=== PATIENT | male | born 1960 | race Caucasian/White ===

== ENCOUNTER 2020-07-24 10:38 | Emergency (ER) | payer MEDICAID, SELFPAY ==
[2020-07-24 10:46] VITALS: BP 138/84; PULSE 70; RESP 16; TEMP 36.7; O2SAT 98
--- NOTE | 2020-07-24 11:15 | DI.US_ITS ---
Exam(s) US LOWER EXTREMITY VENOUS RT EXAM: US LOWER EXTREMITY VENOUS RT CLINICAL HISTORY: pain. TECHNIQUE: Ultrasound performed using standard protocol. COMPARISON: No exams were available for comparison FINDINGS: Duplex venous ultrasound was performed according to the usual protocol. The deep veins are freely com pressible throughout and there is normal flow augmentation with manual calf compression. 2D and Doppl er evaluation are unremarkable. IMPRESSION: No evidence of deep venous thrombosis of the right lower extremity. DATA REPOSITORY:
--- NOTE | 2020-07-24 11:15 | DI.RAD_ITS ---
Exam(s) XR TIB/FIB RT EXAM: XR TIB/FIB RT CLINICAL HISTORY: pain proximal tib, chronic ulcers TECHNIQUE: COMPARISON: No exams were available for comparison FINDINGS: Three views were obtained. There are mild degenerative changes of the joints of the knee and ankle. No other significant bony abnormality seen. IMPRESSION: RADIATION DOSE DELIVERED: Total DLP
[2020-07-24 11:29] VITALS: RESP 16
--- NOTE | 2020-07-24 11:32 | W.ED.GENAD ---
Discharge Plan Disposition Patient Disposition: HOME Condition: Stable Discharge Details Clinical Impression: Pain in right lower leg, Chronic skin ulcer Primary Care Provider: Lisa,Local ED Provider: Jerry Del Rosario Home Meds and New Rx's Prescriptions: Continued metformin 500 mg Tablet 500 mg PO BID RF: 0 sulfamethoxazole-trimethoprim [Bactrim DS] 800-160 mg Tablet 1 tab PO BID RF: 0 aspirin 81 mg Tablet,Delayed Release (Dr/Ec) 81 mg PO DAILY RF: 0 amlodipine 10 mg Tablet 10 mg PO DAILY RF: 0 finasteride 5 mg Tablet 5 mg PO DAILY RF: 0 No Action azithromycin 250 mg Tablet 250 mg PO DAILY RF: 0 atovaquone-proguanil 250-100 mg Tablet 1 tab PO BID RF: 0 Discharge Instructions Instructions: Leg Pain (ED) Additional Instructions: Ultrasound and x-rays today were unremarkable. A blood test is pending at time of discharge. Sure to follow-up with your doctor regarding this test result which should be available within a few days. Please stay off your leg and keep it elevated for the next couple days. Please take Bactrim as prescribed. Discuss your other antibiotics with treating provider and primary care physician. Please contact your primary care physician to arrange follow-up. I have asked care management to assist in arranging a new primary care physician in the area. Please follow-up with your agricultural engineering technicians regarding skin lesions. Return to the ER immediately for any worsening or new concerning symptoms. Stand Alone Forms: Work Release Medical Decision Making 1145??60-year-old male with history of chronic skin ulcers, here with pain over the past 5 days right lower leg. Patient has some mild swelling and tenderness proximal anterior lower leg near area of shallow skin ulcer. There is no warmth, induration, erythema or drainage. Patient was recently started on Bactrim by agricultural engineering technicians yesterday as treatment for ulcerative condition. Screen for underlying bony change. Patient also some pain posterior distal right lower extremity. Consider DVT. Will obtain ultrasound. We will send RPR for chronic rash. --Ultrasound of the right lower extremity interpreted by radiology: Negative. X-ray of the tib-fib interpreted by radiology: Negative. Patient was encouraged to follow-up with his agricultural engineering technicians as well as primary care physician. He will need help establishing a new PCP in the area. I will ask care management to assist. I discussed the limitations of diagnostic work-up with the patient today. He understands that if pain were to persist despite antibiotic treatment over the next few days, he may need additional diagnostic testing and should discuss this with his doctor or return to the emergency department. Usual and customary discharge instructions were reviewed with the patient. HPI General Mode of arrival: ambulatory. Date/Time Provider Initiated Documentation: 07/24/20 10:39. Limitations to Documentation: no limitations. Information obtained by: patient. 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 Pain is been persistent for the past 5 days. Pain is localized to right lower leg worse anteriorly over proximal tibia and also posterior distally. He notes mild associated swelling. No new rash. Patient notes chronic skin ulcers more recently involving his right leg. He was seen by dermatology for these lesions yesterday and started on Bactrim. He is taken 2 doses of Bactrim. Related Data Home Medications Medication Instructions Recorded Confirmed amlodipine 10 mg PO DAILY 07/24/20 07/24/20 aspirin 81 mg PO DAILY 07/24/20 07/24/20 atovaquone-proguanil 1 tab PO BID 07/24/20 07/24/20 azithromycin 250 mg PO DAILY 07/24/20 07/24/20 finasteride 5 mg PO DAILY 07/24/20 07/24/20 metformin 500 mg PO BID 07/24/20 07/24/20 sulfamethoxazole-trimethoprim 1 tab PO BID 07/24/20 07/24/20 [Bactrim DS] Allergies Allergy/AdvReac Type Severity Reaction Status Date / Time thiopental [From Pentothal] Allergy Severe Paralysis Unverified 07/24/20 10:59 Penicillins Allergy Intermediate Skin Rash Unverified 07/24/20 10:59 General Stated Complaint: Orthopedic PAVAN: 3 Review of Systems Constitutional Constitutional: Denies fever(s) Musculoskeletal Musculoskeletal: Denies myalgias Integumentary/Breasts Skin/Breast: Reports acne Neurologic Comments: Intermittent tingling sensation bilateral soles of feet worsening PFSH Social History Smoking/Tobacco Use Status: Never Smoking risk assessment performed?: Yes Alcohol Intake: current Alcohol Intake frequency: holidays/special occasions only Alcohol type: beer Drug use: Occasionally Substance use type: marijuana Details: edibles Do you feel safe at home: Yes Do you feel safe in your relationship?: Yes Exam Const General: cooperative and no acute distress HENMT Mouth: moist mucous membranes Eyes Conjunctivae: normal conjunctivae Sclera: normal sclerae Neck Neck: trachea midline and supple Resp Auscultation: clear to auscultation bilaterally, no rales, no rhonchi and no wheezes Cardio Rate: regular rate and not tachycardic Rhythm: regular rhythm Heart Sounds: no murmurs GI Palpation: soft, not firm, no guarding, no masses, not rigid and nontender Skin Rashes: rashes noted (1-2 cm ulcers in various stages of healing RLE) Neuro General: patient alert, patient awake, patient oriented x3 and tone normal Extrem Other: Right lower extremity: Tender palpation proximal anterior tibia and posterior distal lower leg, mild swelling localized to the anterior lower leg over the tibia with no erythema or warmth, there are 1 to 2 cm o ulcers in various stages of healing on lower leg without erythema or induration. Psych Appearance: grossly normal Mental Status: mental status grossly normal Course Vital Signs Vital signs: Vital Signs Temperature 36.7 C 07/24/20 10:46 Pulse 70 07/24/20 10:46 Respiratory Rate 16 07/24/20 10:46 Blood Pressure 138/84 07/24/20 10:46 Pulse Oximetry 98 07/24/20 10:46 Temperature 36.7 C 07/24/20 10:46 Temperature Source Temporal Artery Scan 07/24/20 10:46 Pulse 70 07/24/20 10:46 Respiratory Rate 16 07/24/20 10:46 Respiratory Effort Non-Labored 07/24/20 10:54 Blood Pressure 138/84 07/24/20 10:46 Blood Pressure Position Supine 07/24/20 10:46 Pulse Oximetry 98 07/24/20 10:46 Oxygen Delivery Method Room Air 07/24/20 10:46 Oxygen Flow Rate 0 07/24/20 10:46 Pain Level 5 07/24/20 11:05
--- NOTE | 2020-07-24 12:31 | NUR.NOTE ---
Nursing Note: report from april neri.
--- NOTE | 2020-07-24 12:39 | NUR.NOTE ---
Nursing Note:lab at bedside. pt denies any needs at this time.
--- NOTE | 2020-07-24 12:44 | NUR.NOTE ---
Nursing Note: Referral given to Care Management to establish care with a PCP with routine follow up. Patricia Callaway
[2020-07-24 12:55] VITALS: BP 123/82; PULSE 66; RESP 16; TEMP 36.7; O2SAT 98
--- NOTE | 2020-07-25 10:33 | PDOC.ERCMPRO ---
- If Service Date Differs Date of service: 07/25/20 Time of Service: 10:33 Care Management Progress Note Terry is seen in the ED for pain in right lower leg and chronic skin ulcer. At the request of ED provider, ROCCO coordinates a referral to Donald Mcclure of [facility], on-call provider, to assist Terry in obtaining a follow up appointment and in establishing care with a local PCP.
[2020-07-25 11:48] LABS: Syphilis Serology (RPR) Negative (Negative)
== END 2020-07-24 13:05 | disposition home or self-care (01) ==
PROVIDERS: Emergency Provider Student in an Organized Health Care Education/Training Program
DX: M79.661 Pain in right lower leg (principal); L97.918 Non-pressure chronic ulcer of unspecified part of right lower leg with other specified severity
CPT/HCPCS: 36415; 99284; 73590; 86592; 93971

== ENCOUNTER 2021-03-19 01:14 | Outpatient (CLI) | payer MEDICAID, SELFPAY ==
--- NOTE | 2021-03-19 | DI.RAD_ITS ---
Exam(s) XR EYE FOREIGN BODY EXAM: XR EYE FOREIGN BODY CLINICAL HISTORY: H/O METAL IN EYES. History metallic foreign body exposure. TECHNIQUE: 2D digital imaging was performed. Two views were obtained. COMPARISON: No exams were available for comparison FINDINGS: No metallic foreign element seen projecting over orbits. IMPRESSION: Unremarkable radiographs of the orbits. DATA REPOSITORY: RADIATION DOSE DELIVERED:
--- NOTE | 2021-03-19 | DI.MRI_ITS ---
Exam(s) MR UPPER JOINT LT WO EXAM: MR UPPER JOINT LT WO CLINICAL HISTORY: PAIN LT SHOULDER M25.512, CONCERN FOR ROTATOR CUFF TEAR. TECHNIQUE: Multiplanar multisequence MRI was performed. COMPARISON: CR XR SHOULDER LT COMPLETE 2+V from 03/19/2021 CR XR SHOULDER LT COMPLETE 2+V from 03/19/2021 FINDINGS: BONES: There is no fracture or contusion pattern. JOINTS: Moderate degenerative changes are seen at the acromioclavicular joint. There is superior sub luxation of the humeral head consistent with the rotator cuff tear. TENDONS: Supraspinatus: Complete tear of the supraspinatus tendon with retraction to the level of the glenohum eral joint. Infraspinatus: There is a complete tear of the infraspinatus tendon with retraction almost to the lev el of the glenohumeral joint. Subscapularis: Unremarkable. Teres Minor: Unremarkable. Biceps and Otis: Unremarkable. MUSCLES: Mild atrophy of the supraspinatus muscle. The rotator cuff muscles are otherwise unremarkab le. GLENOID LABRUM: Unremarkable on this noncontrast examination. SOFT TISSUES: There is mild edema in the soft tissues around the shoulder. LIGAMENTS: Unremarkable. OTHER: There is fluid seen in the subacromial subdeltoid bursa secondary to the rotator cuff tear. IMPRESSION: 1. Complete tears of the supraspinatus and infraspinatus tendons with retraction to the level of the glenohumeral joints. 2. Degenerative changes seen at the acromioclavicular joint. Superior subluxation of the humeral hea d consistent with a large rotator cuff tear. 3. Mild atrophy of the supraspinatus muscle. DATA REPOSITORY:
--- NOTE | 2021-03-19 | DI.RAD_ITS ---
Exam(s) XR SHOULDER LT COMPLETE 2+V EXAM: XR SHOULDER LT COMPLETE 2+V CLINICAL HISTORY: PAIN LT SHOULDER M25.512, PAIN FALL ONTO SHOULDER. TECHNIQUE: 2D digital imaging was performed of the left shoulder. Five images were obtained. AP, G rashey, Y-view and axillary views were obtained. COMPARISON: No exams were available for comparison FINDINGS: BONES: No acute fracture is present. No bony destructive lesion is seen. Note is made of an os acromi janessa. JOINTS: No dislocation present. Mild degenerative changes are seen at the acromioclavicular joint and adjacent to the greater tuberosity. SOFT TISSUE: Normal. IMPRESSION: Degenerative changes of the left AC joint. DATA REPOSITORY: RADIATION DOSE DELIVERED:
== END 2021-03-19 01:34 ==
PROVIDERS: PCP Physician Assistant; Visit Provider Physician Assistant
DX: M25.512 Pain in left shoulder (principal); M19.012 Primary osteoarthritis, left shoulder; M75.121 Complete rotator cuff tear or rupture of right shoulder, not specified as traumatic; M62.512 Muscle wasting and atrophy, not elsewhere classified, left shoulder
CPT/HCPCS: 70030; 73030; 73221

== ENCOUNTER 2021-05-29 02:23 | Outpatient (CLI) | payer MEDICAID, SELFPAY ==
[2021-05-29 11:31] LABS: Source Nasal/Nares
[2021-05-29 14:04] LABS: COVID-19 PCR Negative (Negative)
== END 2021-05-29 02:24 | disposition home or self-care (01) ==
PROVIDERS: PCP Physician Assistant; Visit Provider Student in an Organized Health Care Education/Training Program
DX: Z20.822 Contact with and (suspected) exposure to COVID-19 (principal)
CPT/HCPCS: 87635

== ENCOUNTER 2021-05-31 06:01 | Day surgery (SDC) | payer MEDICAID, SELFPAY ==
--- NOTE | 2021-04-25 08:59 | ANES.CON_ITS ---
General Date of Service Date of Service: 04/23/21 Reason for Consult Requesting Provider: Hansel Woodson How Consult Conducted:: Chart Review Reason for Consult:: PMHx significant for DM last A1C 7.3 04/09/2021, CKD Stage III, SOB, and chest pain with activity that is relieved with rest - negative stress test in 2019? Consult Recommendation after Review:: After review of the patient's records, both at [facility] and [facility], I feel it is appropriate to proceed with the planned procedure at [facility]. Follow-up with his PCP prior to surgery re: HgA1C is also great, thanks! Meds Allergies and Home Medications Allergies Allergy/AdvReac Type Severity Reaction Status Date / Time thiopental [From Pentothal] Allergy Severe Paralysis Unverified 04/23/21 08:29 Penicillins Allergy Intermediate Skin Rash Unverified 04/23/21 08:29 Home Medication Medication Instructions Recorded amlodipine 10 mg tablet 10 mg PO DAILY 07/24/20 finasteride 5 mg tablet 5 mg PO DAILY 07/24/20 metformin 500 mg tablet 500 mg PO BID 07/24/20 sulfamethoxazole 800 1 tab PO BID 07/24/20 mg-trimethoprim 160 mg tablet (Bactrim DS) doxycycline hyclate 100 mg capsule 100 mg PO DAILY 04/23/21 hydrochlorothiazide 25 mg tablet 25 mg PO DAILY 04/23/21 [facility] Active Problems Active Problems: Problem Status Onset Code Complete rotator cuff tear M75.120 Pain in right lower leg M79.661 Chronic skin ulcer L98.499 Tobacco Smoking/Tobacco Use Status: Never Alcohol Alcohol Intake: current Alcohol intake frequency: holidays/special occasions only Alcohol type: beer Substance Use Substance use: Occasionally Substance use type: marijuana Details: edibles Vital Signs & Lab Results Point of Care Results Nursing Point of Care Results: No Data to Display Lab Results Blood Type / Crossmatch: No Data to Display Complete Blood Count: No Data to Display Complete Metabolic Panel: No Data to Display Liver Function Panel: No Data to Display Coagulation Panel: No Data to Display Cardiac Panel: No Data to Display Arterial Blood Gas: No Data to Display Venous Blood Gas: No Data to Display Pancreas Panel: No Data to Display Thyroid Panel: No Data to Display Infectious Disease: No Data to Display Blood Cultures: No Data to Display Toxicology Panel: No Data to Display Imaging and Studies Imaging and Studies Stress Test Summary: 04/21/18 Good exercise tolerance and no ST changes. Echocardiogram Summary: 03/29/18 EF 60%, 3-4 mm mobile atheromatous plaque at the sinotubular junction which could be potential source of emboli. No thrombus or clot noted in left atrium or left atrial appendage. No PFO. No significant cardiac valve disease.
[2021-05-31] VITALS (13 sets, daily range): BP systolic 85–137; BP diastolic 55–96; PULSE 59–73; RESP 12–20; TEMP 36.2–37; O2SAT 95–100; BMI 26.2
--- NOTE | 2021-05-31 06:36 | W.ANESPRE ---
General Info Date of Service Date Performed: 05/31/21 Height: 5 ft 7 in Weight: 75.8 kg Body Mass Index (BMI): 26.2 Surgical Procedure: Operation Date: 05/31/21 07:40 Proposed Procedure Side Surgeon p Shoulder Rotator Cuff Arthroscopic w/Extensive Debridement, Biceps Tenodesis, Subacromial Decompression and Allograft Superior Capsular Reconstruction Left Hansel Woodson MD Meds Allergies and Home Medications Allergies Allergy/AdvReac Type Severity Reaction Status Date / Time thiopental [From Pentothal] Allergy Severe Paralysis Unverified 05/31/21 06:19 Penicillins Allergy Intermediate Skin Rash Unverified 05/31/21 06:19 Home Medication Medication Instructions Recorded finasteride 5 mg tablet 5 mg PO DAILY 07/24/20 metformin 500 mg tablet 500 mg PO BID 07/24/20 doxycycline hyclate 100 mg capsule 100 mg PO DAILY 04/23/21 hydrochlorothiazide 25 mg tablet 25 mg PO DAILY 04/23/21 clindamycin phosphate 1 % lotion 1 applic TOPICAL PRN PRN 05/31/21 diphenhydramine 25 2 tab PO PRN PRN 05/31/21 mg-acetaminophen 500 mg tablet (Tylenol PM Extra Strength) losartan 25 mg tablet 25 mg PO DAILY 05/31/21 oxycodone 5 mg tablet 5 - 10 mg PO Q4H PRN #18 tab MDD 05/31/21 30 mg Current Visit Medications: Current Medications Generic Name Dose Route Start Last Admin Trade Name Freq PRN Reason Stop Dose Admin Ringer's Solution 1,000 mls @ 100 mls/hr 05/31/21 06:00 IV 06/13/21 23:59 INFUSION ZONIA Cefazolin Sodium/Dextrose 2 gm in 50 mls @ 100 mls/hr 05/31/21 06:00 Ancef Duplex IVPB 05/31/21 23:59 PREOP ZONIA IV Miscellaneous Supplies 1 each 05/31/21 06:00 Iv Access IV 06/13/21 23:59 DIRECTED ZONIA Sodium Chloride 0 ml 05/31/21 06:00 Normal Saline Flush 10 Ml Syr IV 06/13/21 23:59 PRN PRN Sodium Chloride 0 ml 05/31/21 06:00 Normal Saline 10 Ml Vial IJ 06/13/21 23:59 DIRECTED PRN Sterile Water 0 ml 05/31/21 06:00 Water,Injection,Sterile 10 Ml Vial IJ 06/13/21 23:59 DIRECTED PRN PFSH Active Problems Active Problems: Problem Status Onset Code Pain in right lower leg M79.661 Chronic skin ulcer L98.499 Complete rotator cuff tear M75.120 Medical History Medical History (Updated 05/31/21 @ 07:16 by Hansel Woodson MD) 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 HTN (hypertension) Hx of Lyme disease Stage III chronic kidney disease Type 2 diabetes mellitus Medical History Comments:: 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 Surgical History Surgical History Hx of appendectomy Hx of shoulder surgery Tobacco Smoking/Tobacco Use Status: Never Alcohol Alcohol Intake: current Alcohol intake frequency: a few times a month Alcohol type: beer Substance Use Substance use: Rarely Substance use type: marijuana Details: edibles Vital Signs and Lab Results Vital Signs Most Recent Vital Signs in EMR: Most Recent Vital Signs Temp Pulse Resp BP Pulse Ox 36.3 C L 69 16 132/96 H 100 05/31/21 06:26 05/31/21 06:26 05/31/21 06:26 05/31/21 06:26 05/31/21 06:26 Point of Care Results Point of Care Results: Finger Stick Blood Glucose 148 05/31/21 06:16 Lab Results Blood Type / Crossmatch: No Data to Display Complete Blood Count: No Data to Display Complete Metabolic Panel: No Data to Display Liver Function Panel: No Data to Display Coagulation Panel: No Data to Display Cardiac Panel: No Data to Display Arterial Blood Gas: No Data to Display Venous Blood Gas: No Data to Display Pancreas Panel: No Data to Display Thyroid Panel: No Data to Display Infectious Disease: Coronavirus (COVID-19)(PCR) Negative (Negative) 05/29/21 08:31 05/29/21 Coronavirus 2019 Source Nasal/Nares 05/29/21 08:31 05/29/21 Blood Cultures: No Data to Display Toxicology Panel: No Data to Display Imaging and Studies Imaging and Studies Study information below may be from another EMR and interpreted by another provider. Please see original notes in EMR for more complete details. Stress Test Summary: 04/21/18 Good exercise tolerance and no ST changes. Echocardiogram Summary: 03/29/18 EF 60%, 3-4 mm mobile atheromatous plaque at the sinotubular junction which could be potential source of emboli. No thrombus or clot noted in left atrium or left atrial appendage. No PFO. No significant cardiac valve disease. Anesthesia Assessment and Plan Anesthesia History Personal History: Delayed Emergence and Pseudocholinesterase Deficiency Family History: No Family History of Anesthesia Complications Exercise Tolerance Exercise Tolerance: Metabolic Equivalents>4 Pertinent Negatives Pertinent Negatives: No Symptoms of GERD, No Major Cardiovascular Symptoms or Complaints (None current. 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 Corrected about three years ago. Walks 2 miles a day, does not feel limited. ), No Major Pulmonary Symptoms or Complaints and No History of CVA/TIA (Has a history of TIA noted in [facility] chart. Was determined to be Lymes and not TIAs) Cardiac & Pulmonary Exam Cardiac Exam: Normal S1/S2 Heart Sounds Pulmonary Exam: Clear Bilateral Breath Sounds Implantable Cardiac Device Does patient have a Pacemaker or an ICD?: No Airway Exam Known Difficult Airway: No Mallampati Class: 2 Mouth Opening: Normal (> 3cm) Thyromental Distance: Greater than 3 cm Neck Range of Motion: Full ROM Neck Circumference: Normal Teeth Condition: Generalized Poor Dentition ASA Classification ASA Score: ASA 3 Emergency Case?: No NPO Status NPO Status: NPO Clears >2 hours, Solids >8 hours Anesthesia Plan Resuscitation Status: Full Code Anesthesia Technique: General Anesthesia Airway Planned: Endotracheal Tube Pain Management: Surgeon and patient request nerve block Monitors Used: Standard Monitors Preoperative Comments:: Pseudocholinesterase deficiency, Mild factor VII deficiency. TXA to be given, pharmacy and blood bank notified. Last assessment of factor VII factors was at 40%. UV Heme/Onc not concerned about spontaneous bleeding unless under 19%. Patient reports recent spout of nosebleeds. Feels these are related to wood heat.
[2021-05-31] MEDS: Lactated Ringers 1,000 ML 100 ML IV (06:55)
[2021-05-31] MEDS: ceFAZolin 2 GM/50 ML BAG IVPB (07:50)
[2021-05-31] MEDS: Tranexamic Acid 1,000 MG/10 ML VIAL 1000 MG (08:05)
--- NOTE | 2021-05-31 09:00 | ROE_ITS ---
Date of service: 05/31/21 Time of Service: 07:30 Operative Note Operative Note DATE OF PROCEDURE: 05/31/21 PRE-OP DIAGNOSIS: Left: 1. Rotator cuff tear 2. LHB tendinopathy 3. Bursitis POST-OP DIAGNOSIS: same PROCEDURE: Left: 1. Rotator cuff repair, CPT# 51775. This involved repair of the anterior and posterior rotator cuff through the graft to the greater tuberosity. 2. Arthroscopic superior capsular reconstruction, CPT #33615: This involved dermal allograft reconstruction of deficient superior capsule to maintain glenohumeral stability and prevent superior humeral migration. 3. Arthroscopic biceps tenodesis, CPT# 73548. This involved arthroscopically suturing and reattaching the long head of the biceps tendon to the proximal humerus at the superior margin of the bicipital groove with a screw at the correct tension. 4. Extensive debridement, CPT# 65691. This involved using arthroscopic hand instruments, power instruments, and radiofrequency instruments to release the long head of the biceps tendon and debride areas of labral tearing, synovitis, and chondromalacia about the greater tuberosity within the glenohumeral joint anteriorly, superiorly and posteriorly. 4. Subacromial decompression, CPT# 97190. This involved using arthroscopic power instruments and a radiofrequency wand to complete a bursectomy. The assistant professor of history was medically required in order to help assist in techniques above, which require positioning the arm, holding the arthroscope, and manipulating multiple instruments and sutures at the same time. This cannot be done without the help of an experienced assistant professor of history. SURGEON: Hansel Woodson BUDGET CONTROLLER: Clara Benitez ANESTHESIA TYPE: General LMA/ETT and Primary Nerve Block Refer to Anesthesia Record ESTIMATED BLOOD LOSS: 10 PATHOLOGY: none sent COMPLICATIONS: None Patient was transported to: PACU Patient's condition: stable Implants: Arthrex: 4.75mm SwiveLocks x 5 and 3.9mm knotless Corkscrews x 2 Indications: The patient was diagnosed with the above conditions and appropriately indicated for surgical intervention. Please see complete medical record for details. Findings: Exam under anesthesia: Full range of motion, no instability Glenohumeral joint: Intact subscapularis. Significant anterior superior posterior synovitis. Chronic degenerative bony fibrinous and early osteophyte formation superior humeral head. Obvious full-thickness superior rotator cuff defect. Degenerative type SLAP tear. Significant biceps long head intra- articular segment injection traveling down the groove. Subacromial space: Significant bursitis. Complete deficient superior rotator cuff with posterior intact attachment most posterior rotator cuff. Procedure Description: In the operating room, general anesthesia was induced. Bilateral shoulders were examined. The patient was positioned in the beachchair position. All bony prominences were well-padded. Preoperative antibiotics were administered. The shoulder was prepped and draped in the usual sterile fashion. The correct patient, procedure, and side of the procedure were all verified prior to incision. Starting through the posterior portal a standard complete diagnostic arthroscopy was performed of the glenohumeral joint including inspection of the long head of the biceps, anterior and superior labrum, subscapularis tendon, supraspinatus and infraspinatus tendons, and axillary recess. The glenoid and humeral head cartilage as well as the posterior labrum were inspected from an anterior viewing portal. Significant findings and interventions noted above. A rigid cannula was inserted anteriorly. The superior anterolateral portal was established. An all-arthroscopic suprapectoral biceps tenodesis was performed through an anterior portal using a Loop N Tack method with a SutureTape FiberLink cinched around and through the tendon. The biceps was tenotomized from the labrum and fixated with a suture anchor at the superior margin of the bicipital groove. The arthroscope was redirected to the subacromial space. The usual posterior superior lateral lateral portals were established and additional passport cannulas inserted. Significant debridement was performed of bursitis anterior laterally and posteriorly to expose the chronic significant rotator cuff tear changes. The humeral head was abraded and debrided and smoothed of early marginal osteophyte formation and to promote bone tendon and graft healing. Debridement was carried medially exposing the superior and posterior superior glenoid. There was significant intact interval tissue over the anterosuperior glenoid. Decision was made to proceed with central and posterior anchors on the glenoid and not exposed violate this tissue for a third anchor. Percutaneously Nevasier and posterior portals were used to debride and place 3.9 mm corkscrew anchors on the glenoid. On the humeral side, the undersized punch was used to localize in place medial row SwiveLock anchors. The SCR measuring guide was then used to measure graft dimensions with the arm in neutral mild external rotation and abduction. The graft was cut on the back table to the correct size leaving a 5 mm cuff anteriorly medially posteriorly with 10 mm laterally for tuberosity coverage. The glenoid anchor locations were marked and the medial row anchor sites were prepunched. The FiberTape's were brought out the lateral cannula and shuttled through the graft. Maintain the graft and sutures down the anterior repair suture and shuttle suture was retrieved from the glenoid and then passed with the scorpion through the graft in horizontal mattress fashion before shuttling the repair suture back through the glenoid corkscrew. This was repeated with the posterior glenoid knotless anchor. Slack was taken out of the system. The back grasper used to deliver the graft into the joint through the passport cannula while taking tension out of the glenoid knotless anchor mechanisms. The graft deployed nicely and was provisionally secured to the glenoid. Slack was taken out of the FiberTape's and 1 tape from each pair brought out of the way out the anterior lateral portal. The punch was used to localize placement and secure 1 tape from each medial row anchor to a posterior lateral anchor. The arm then rotated, the remaining tape pairs retrieved, and the punch used to localize placement and secure these remaining tapes to an anterior lateral row anchor. The graft demonstrated excellent fixation across the greater tuberosity. The glenoid anchors were final tightened. There was excellent fit over the large superior defect. Posteriorly, the gap between the rotator cuff and capsular reconstruction was closed using the scorpion passing a FiberWire side to side fashion and tied securely with an [facility] arthroscopic knot. This was repeated at the anterior lateral margin incorporating the kinney interval tissue, actually passing the sutures through the biceps tendon which was tenodesed in this location, and through the anterior lateral margin of the graft and secured with an additional [facility] arthroscopic knot. The graft rotator cuff was well opposed posteriorly. No additional repairs were placed anteriorly and to avoid undue closing and stiffness. The shoulder was copiously irrigated and then drained of arthroscopic fluid. All portal sites were copiously irrigated. These incisions were closed using 3- 0 Monocryl in a buried fashion and then covered with Mastisol, Steri-Strips, Xeroform, dry gauze, and ABDs. The dressings were covered and secured with Medipore tape. The operative extremity was placed into a sling for immobilization. The patient awoke from anesthesia without complication and was transferred to the recovery room in a stable condition.
[2021-05-31] MEDS: EPINEPHrine 30 MG/30 ML VIAL (10:00)
--- NOTE | 2021-05-31 10:27 | PDOC.DSDIS_ITS ---
Discharge Plan Disposition Patient Disposition: HOME Condition: Stable Discharge Details Reason For Visit: Left shoulder surgery Attending Provider: Hansel Woodson Primary Care Provider: Cayden Hopkins Home Meds and New Rx's Prescriptions: New oxycodone 5 mg tablet 5 - 10 mg PO Q4H MDD 30 mg PRN (Reason: moderate to severe pain) Qty: 18 0RF Continued hydrochlorothiazide 25 mg tablet 25 mg PO DAILY 0RF doxycycline hyclate 100 mg capsule 100 mg PO DAILY 0RF losartan 25 mg Tablet 25 mg PO DAILY 0RF clindamycin phosphate 1 % lotion 1 applic topical PRN PRN0RF diphenhydramine-acetaminophen [Tylenol PM Extra Strength] 25-500 mg Tablet 2 tab PO PRN PRN0RF metformin 500 mg Tablet 500 mg PO BID 0RF finasteride 5 mg Tablet 5 mg PO DAILY 0RF Discharge Instructions Additional Instructions: Surgery: Left shoulder arthroscopy with allograft superior capsular reconstruction, rotator cuff repair, biceps tenodesis, extensive debridement, and subacromial decompression. Activity: For 6 weeks, you should keep your arm at your side in a neutral position at all times except for physical therapy. Do not try to lift or raise your arm using your own muscles. You should use the sling whenever you are out of the house. You may have to adjust the abduction pillow or remove it for comfort. At home it is best to remove the sling and rest the arm on a pillow at your side or support the operative side with your other hand. You may allow the arm to dangle at your side. A physical therapy prescription will be sent electronically to begin in about 3 weeks. CONSERVATIVE rehab. 6 weeks passive?only motion followed by active assist. Active motion after 8 weeks. No strengthening for 3 months. Prescriptions: No aspirin or NSAIDs due to bleeding risk and chronic kidney disease Oxycodone 5 mg take 1-2 every 4-6 hours as needed for severe pain You may use [id number] Tylenol (acetaminophen) as needed for mild pain. These pain medications may be taken all at once or in different combinations as needed. Also, recommend Colace (docusate) as a stool softener as surgery and pain medicine cause constipation. Dressings: Remove shoulder bandage after 3 days. Leave the sticky Steri-Strips in place until they fall off or remove them after you shower. Cover the incisions with Band-Aids or leave them open to air. You may shower after 5 days. Follow-up: 10-[address] Woodson You may take off the leg compression stockings this evening at home. You may also leave them on a few days longer if you have a history of leg swelling or edema. Let us know right away if you develop any redness, drainage, fevers, chest pain, or trouble breathing. Do not drink alcohol or drive for at least 24 hours after anesthesia. Please call the office during business hours with any questions or concerns. Referrals: Hansel Woodson MD [ [facility] STAFF PHYSICIAN] - Discharge Orders Discharge Orders: Discharge Order (Routine); Ordered 05/31/21 Ordered By: Hansel Woodson DS: Diagnosis Discharge Diagnosis (1) Complete rotator cuff tear: Status: Acute
[2021-05-31] MEDS: fentaNYL 100 MCG/2 ML VIAL IVP ×2 (11:26→11:49)
[2021-05-31] MEDS: Normal Saline 10 ML VIAL IJ (11:41)
[2021-05-31] MEDS: HYDROmorphone 2 MG/ML VIAL IVP (11:41)
[2021-05-31] MEDS: ACETAMINOPHEN 1,000 MG/100 ML BTL 400 MG IVPB (12:02)
--- NOTE | 2021-05-31 12:49 | W.ANESNERVE ---
Nerve Block Single Injection Procedure Date and Time Date Performed: 05/31/21 Procedure Start: 07:32 Location Where Procedure Performed Procedure Location: Day Surgery Unit Reason Performed: Postoperative Analgesia Requesting Provider: Hansel Woodson Timeout Performed Timeout Performed: Yes Monitoring Used ECG, Blood Pressure and SpO2 Sterility Sterility: Hand Hygiene, Surgical Cap, Surgical Mask, Sterile Gloves and Chlorhexidine Sedation Given During Procedure Sedation Given (Indicate Dose Given): Versed IV Dose:: 1 mg Patient Mental Status Patient Mental Status: Sedate with meaningful communication Nerve Block 1st Nerve Block: Laterality: Left Block Type: Interscalene Needle / Catheter Used: 100mm SonoPlex II Local Anesthetic Bolus (Indicate Dose Given): Lidocaine used for local infiltration of skin, Injected in 3-5ml increments after negative blood aspiration, Bupivacaine 0.375% Dose:: 10 ml and Exparel Dose:: 10 ml Additives (Indicate Dose Given): Normal Saline (for hydrodissection) Ultrasound: Sterile probe cover and gel used Ultrasound Image Saved?: Yes Nerve Stimulator: Not Used Paresthesia: None Procedure Tolerated: No Complications and Patient did not tolerate well (Reported significant pressure during instillation of LA. Denied parasthesia) Procedure Outcome: Successful Performed By: Brendan Torres
[2021-05-31] MEDS: oxyCODONE 5 MG TAB PO (13:08)
--- NOTE | 2021-05-31 13:50 | W.ANESPOSTOP ---
Postoperative Evaluation Date, Time and Location Date Performed: 05/31/21 Time Performed: 13:50 Patient Location: Day Surgery Unit Vital Signs Most Recent Imported Vital Signs: Most Recent Vital Signs Temp Pulse Resp BP Pulse Ox 36.4 C L 69 18 122/91 H 100 05/31/21 12:57 05/31/21 12:57 05/31/21 12:57 05/31/21 12:57 05/31/21 12:57 Pain Score Most Recent Pain Score: Most Recent Pain Score Pain Level 8 05/31/21 12:57 Assessment Mental Status: Awake (Alert & Oriented to Patient Baseline) Airway and Respiratory Function: Patent airway with normal (patient baseline) respiratory exam Cardiovascular Function: Hemodynamically Stable Hydration Status: Adequately Hydrated Nausea & Vomiting: No Nausea or Vomiting Pain: Pain is tolerable per patient Peripheral Nerve Block: Regional nerve block not resolved at time of post operative discharge
== END 2021-05-31 14:35 | disposition home or self-care (01) ==
PROVIDERS: PCP Physician Assistant; Visit Provider Student in an Organized Health Care Education/Training Program
PROC: (CPT 29827; principal; 2021-05-31 07:30)
DX: M75.122 Complete rotator cuff tear or rupture of left shoulder, not specified as traumatic (principal); E11.9 Type 2 diabetes mellitus without complications; N18.30 Chronic kidney disease, stage 3 unspecified; M75.52 Bursitis of left shoulder; M75.22 Bicipital tendinitis, left shoulder; M94.212 Chondromalacia, left shoulder
CPT/HCPCS: 29806; 29823; 29827; 29828; 29826; 76942; J0131; J0690; J1100; J2250; J2370; J2405; J2704; J3010

== ENCOUNTER → 2021-07-01 01:27 | Outpatient (CLI) | payer MEDICAID, SELFPAY ==
--- NOTE | 2021-07-01 07:00 | DI.MRI_ITS ---
Exam(s) MR UPPER JOINT LT WO EXAM: MR UPPER JOINT LT WO CLINICAL HISTORY: s/p RTC repair, continued pain,M75.120. TECHNIQUE: Multiplanar multisequence MRI was performed. COMPARISON: Plain films and MRI April 06. FINDINGS: BONES: Multiple screws humeral head, related to rotator cuff repair.. There is no fracture or contus ion pattern. Spurring tip of the acromion. JOINTS: The acromioclavicular joint shows moderate spurring.. The glenohumeral joint is normal. TENDONS: Supraspinatus: Status post tendon repair, intact. Infraspinatus: Status post tendon repair, intact. Subscapularis: Unremarkable. Teres [place]: Unremarkable. Biceps and [place]: Some thickening and intermediate signal long head of the biceps tendon, not seen o n prior exam. Attachment biceps tendon not on anchor not seen. Tear not excluded. MUSCLES: Stable mild supraspinatus and infraspinatus muscle atrophy. GLENOID LABRUM: Degenerative changes on this noncontrast examination. SOFT TISSUES: Unremarkable. OTHER: Subacromial and subdeltoid bursae show small amount of fluid.. IMPRESSION: Status post repair of supraspinatus and infraspinatus tendon tears which appears intact. New biceps tendinosis and question of a proximal tear.. DATA REPOSITORY:
== END ==
PROVIDERS: PCP Physician Assistant; Visit Provider Student in an Organized Health Care Education/Training Program
DX: M25.512 Pain in left shoulder (principal); M75.122 Complete rotator cuff tear or rupture of left shoulder, not specified as traumatic; Z98.890 Other specified postprocedural states; M75.22 Bicipital tendinitis, left shoulder
CPT/HCPCS: 73221

== ENCOUNTER 2021-08-21 03:26 | Outpatient (CLI) | payer MEDICAID, SELFPAY ==
[2021-08-21 12:07] LABS: Source Nasal/Nares
[2021-08-21 16:06] LABS: COVID-19 PCR Negative (Negative)
== END 2021-08-21 03:27 | disposition home or self-care (01) ==
LOC: LBO 03:26
PROVIDERS: PCP Physician Assistant; Visit Provider Student in an Organized Health Care Education/Training Program
DX: Z20.822 Contact with and (suspected) exposure to COVID-19 (principal); Z01.818 Encounter for other preprocedural examination
CPT/HCPCS: 87635

== ENCOUNTER 2021-08-23 05:54 | Day surgery (SDC) | payer MEDICAID, SELFPAY ==
--- NOTE | 2021-08-22 18:26 | W.ANESPRE ---
General Info Date of Service Date Performed: 08/23/21 Height: 5 ft 7 in Weight: 78.471 kg Body Mass Index (BMI): 27.1 Surgical Procedure: Operation Date: 08/23/21 07:40 Proposed Procedure Side Surgeon p Shoulder Arthroscopy w/Revision Extensive Debridement and Open Biceps Tenodesis Left Hansel Woodson MD Meds Allergies and Home Medications Allergies Allergy/AdvReac Type Severity Reaction Status Date / Time thiopental [From Pentothal] Allergy Severe Paralysis Verified 08/23/21 06:16 Penicillins Allergy Intermediate Skin Rash Verified 08/23/21 06:16 succinylcholine AdvReac Severe Other (See Verified 08/23/21 06:16 Comment) Home Medication Medication Instructions Recorded finasteride 5 mg tablet 5 mg PO DAILY 07/24/20 metformin 500 mg tablet 500 mg PO BID 07/24/20 doxycycline hyclate 100 mg capsule 100 mg PO DAILY 04/23/21 hydrochlorothiazide 25 mg tablet 25 mg PO DAILY 04/23/21 clindamycin phosphate 1 % lotion 1 applic topical PRN PRN 05/31/21 diphenhydramine 25 2 tab PO PRN PRN 05/31/21 mg-acetaminophen 500 mg tablet (Tylenol PM Extra Strength) losartan 25 mg tablet 25 mg PO DAILY 05/31/21 lactobacillus combination no.9 4 4,000 mmu cells PO DAILY 07/24/21 billion cell capsule (Adult 50 Plus Probiotic) acetaminophen 500 mg tablet 500 mg PO Q6H PRN 08/23/21 (Acetaminophen Extra Strength) Current Visit Medications: Current Medications Generic Name Dose Route Start Last Admin Trade Name Freq PRN Reason Stop Dose Admin Ringer's Solution 1,000 mls @ 30 mls/hr 08/23/21 06:00 IV 09/21/21 23:59 INFUSION ZONIA Cefazolin Sodium/Dextrose 2 gm in 50 mls @ 100 mls/hr 08/23/21 06:00 Ancef Duplex IVPB 09/21/21 23:59 PREOP ZONIA IV Miscellaneous Supplies 1 each 08/23/21 06:00 Iv Access IV 09/21/21 23:59 DIRECTED ZONIA Sodium Chloride 0 ml 08/23/21 06:00 Normal Saline Flush 10 Ml Syr IV 09/21/21 23:59 PRN PRN Sodium Chloride 0 ml 08/23/21 06:00 Normal Saline 10 Ml Vial IJ 09/21/21 23:59 DIRECTED PRN Sterile Water 0 ml 08/23/21 06:00 Water,Injection,Sterile 10 Ml Vial IJ 09/21/21 23:59 DIRECTED PRN PFSH Active Problems Active Problems: Problem Status Onset Code Pseudocholinesterase deficiency E88.09 Bursitis of left shoulder M75.52 Tendinitis of long head of biceps brachii of left shoulder M75.22 Pain in right lower leg M79.661 Chronic skin ulcer L98.499 Complete rotator cuff tear M75.120 Medical History Medical History 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 HTN (hypertension) Hx of Lyme disease Stage III chronic kidney disease Type 2 diabetes mellitus Medical History Comments:: 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, every muscle completley relaxred Surgical History Surgical History Hx of appendectomy Hx of shoulder surgery Tobacco Smoking/Tobacco Use Status: Never Alcohol Alcohol Intake: current Alcohol intake frequency: a few times a month Alcohol type: beer Substance Use Substance use: Rarely Substance use type: marijuana Details: edibles Vital Signs and Lab Results Vital Signs Most Recent Vital Signs in EMR: Temp Pulse Resp BP Pulse Ox 36.4 C L 65 16 124/87 98 08/23/21 06:05 08/23/21 06:05 08/23/21 06:05 08/23/21 06:05 08/23/21 06:05 Lab Results Blood Type / Crossmatch: No Data to Display Complete Blood Count: No Data to Display Complete Metabolic Panel: Hemoglobin A1c 6.6 % (4.5-5.7) H 07/24/21 10:49 Liver Function Panel: No Data to Display Coagulation Panel: No Data to Display Cardiac Panel: No Data to Display Arterial Blood Gas: No Data to Display Venous Blood Gas: No Data to Display Pancreas Panel: No Data to Display Thyroid Panel: No Data to Display Infectious Disease: Coronavirus (COVID-19)(PCR) Negative (Negative) 08/21/21 10:29 Coronavirus 2019 Source Nasal/Nares 08/21/21 10:29 Blood Cultures: No Data to Display Toxicology Panel: No Data to Display Imaging and Studies Imaging and Studies Study information below may be from another EMR and interpreted by another provider. Please see original notes in EMR for more complete details. Stress Test Summary: 04/21/18: negative for ischemia. Good exercise tolerance and no ST changes. Echocardiogram Summary: 03/29/18 EF 60%, 3-4 mm mobile atheromatous plaque at the sinotubular junction which could be potential source of emboli. No thrombus or clot noted in left atrium or left atrial appendage. No PFO. No significant cardiac valve disease. Anesthesia Assessment and Plan Anesthesia History Personal History: Delayed Emergence and Pseudocholinesterase Deficiency Family History: No Family History of Anesthesia Complications Exercise Tolerance Exercise Tolerance: Metabolic Equivalents>4 Cardiac & Pulmonary Exam Cardiac Exam: Normal S1/S2 Heart Sounds Pulmonary Exam: Clear Bilateral Breath Sounds Implantable Cardiac Device Does patient have a Pacemaker or an ICD?: No Airway Exam Known Difficult Airway: No Mallampati Class: 2 Mouth Opening: Normal (> 3cm) Thyromental Distance: Greater than 3 cm Neck Range of Motion: Full ROM Neck Circumference: Normal Teeth Condition: Generalized Poor Dentition ASA Classification ASA Score: ASA 2 Emergency Case?: No NPO Status NPO Status: NPO Clears >2 hours, Solids >8 hours Anesthesia Plan Resuscitation Status: Full Code Anesthesia Technique: General Anesthesia Airway Planned: Endotracheal Tube Pain Management: Surgeon and patient request nerve block Monitors Used: Standard Monitors Preoperative Comments:: 61 yo male for revision left shoulder arthroscopy. Denies recent health history change since last shoulder. Sig PMHx: CKDIII, DM (metformin, 08/04 A1c 6.6%), factor 7 deficiency, HTN (HCTZ, losartan),TIA (negative carotid duplex), never smoker, occ EtOH, occ cannabis. ECHO: LVEF 60%, no sig valve dz. stress test: negative ischemia, normal perfusion. Previous Anes: RTC repair: mac 3 grade 2b, low dose phenyl gtt, Pain noted as 8/10 on post op. block done with midaz 1mg, 10 mL 0.375 bupivacine and 10 mL exparel. Did get TXA due to factor 7. Discussed previous anes and pain on discharge. His pain was mostly in the tricep, seems like his shoulder was zero pain. We discussed that this may happen again.
[2021-08-23] VITALS (10 sets, daily range): BP systolic 86–131; BP diastolic 52–95; PULSE 61–73; RESP 14–20; TEMP 36.2–36.6; O2SAT 97–99; BMI 27.1
[2021-08-23] MEDS: Lactated Ringers 1,000 ML 30 ML IV (06:46)
[2021-08-23] MEDS: Midazolam 2 MG/2 ML VIAL IVP (07:20)
--- NOTE | 2021-08-23 07:24 | W.ANESNERVE ---
Nerve Block Single Injection Procedure Date and Time Date Performed: 08/23/21 Procedure Start: 07:12 Location Where Procedure Performed Procedure Location: Day Surgery Unit Reason Performed: Postoperative Analgesia Requesting Provider: Hansel Woodson Timeout Performed Timeout Performed: Yes Monitoring Used ECG, Blood Pressure and SpO2 Sterility Sterility: Hand Hygiene, Surgical Cap, Surgical Mask, Sterile Gloves and Chlorhexidine Sedation Given During Procedure Sedation Given (Indicate Dose Given): Versed IV (2 mg + 2 mg) Dose:: 4 mg Patient Mental Status Patient Mental Status: Sedate with meaningful communication Nerve Block 1st Nerve Block: Laterality: Left Block Type: Interscalene Needle / Catheter Used: 100mm SonoPlex II Local Anesthetic Bolus (Indicate Dose Given): Lidocaine used for local infiltration of skin, Injected in 3-5ml increments after negative blood aspiration and Bupivacaine 0.5% Dose:: 15 mL Additives (Indicate Dose Given): Decadron Dose:: 2 mg and Precedex Dose:: 40 mcg Ultrasound: Sterile probe cover and gel used Ultrasound Image Saved?: Yes Nerve Stimulator: Not Used Paresthesia: None Procedure Tolerated: Patient did not tolerate well Procedure Outcome: Successful Procedure Comment: procedure paused due to too much movement. complaining of significant pressure and discomfort (not injecting, just with needle advancement). deep breathing resulting in significant movement of plexus. Verbal order for midaz given. procedure completed, but could recommend other brachal plexus block to be performe dwith additional sedation or under GA. Performed By: Gerard Madrid
[2021-08-23] MEDS: ceFAZolin 2 GM/50 ML BAG IVPB (07:47)
[2021-08-23] MEDS: Tranexamic Acid 1,000 MG/10 ML VIAL 1000 MG (08:00)
[2021-08-23] MEDS: Lidocaine 1% Multi-Dose W/EPI 1/100,000 50 ML VIAL (08:31)
[2021-08-23] MEDS: EPINEPHrine 30 MG/30 ML VIAL (09:09)
--- NOTE | 2021-08-23 09:36 | W.PM.DSUDISC ---
Discharge Plan Disposition Patient Disposition: HOME Condition: Stable Discharge Details Reason For Visit: Left shoulder surgery Attending Provider: Hansel Woodson Primary Care Provider: Cayden Hopkins Home Meds and New Rx's Prescriptions: New oxycodone 5 mg tablet 5 - 10 mg PO Q4H MDD 30 mg PRN (Reason: moderate to severe pain) Qty: 18 0RF Continued hydrochlorothiazide 25 mg tablet 25 mg PO DAILY doxycycline hyclate 100 mg capsule 100 mg PO DAILY Adult 50 Plus Probiotic 4 billion cell capsule 4,000 mmu cells PO DAILY Rx Instructions: administer with a meal losartan 25 mg Tablet 25 mg PO DAILY clindamycin phosphate 1 % lotion 1 applic topical PRN PRN diphenhydramine-acetaminophen [Tylenol PM Extra Strength] 25-500 mg Tablet 2 tab PO PRN PRN metformin 500 mg Tablet 500 mg PO BID finasteride 5 mg Tablet 5 mg PO DAILY acetaminophen [Acetaminophen Extra Strength] 500 mg Tablet 500 mg PO Q6H PRN Discharge Instructions Additional Instructions: Surgery: Left shoulder arthroscopy with revision extensive debridement, limited rotator cuff repair, and open biceps tenodesis Activity: For 6 weeks, you should keep your arm at your side in a neutral position at all times except for physical therapy. Do not try to lift or raise your arm using your own muscles. You should use the sling whenever you are out of the house. You may have to adjust the abduction pillow or remove it for comfort. At home it is best to remove the sling and rest the arm on a pillow at your side or support the operative side with your other hand. You may allow the arm to dangle at your side. A physical therapy prescription will be sent electronically to resume in about 3 weeks. Prescriptions: Oxycodone 5 mg take 1-2 every 4-6 hours as needed for severe pain You may use ledo-itl-wideexv Tylenol (acetaminophen) as needed for mild pain. These pain medications may be taken all at once or in different combinations as needed. Also, recommend Colace (docusate) as a stool softener as surgery and pain medicine cause constipation. You may try [id number]-[id number] diphenhydramine (Benadryl) 25-50 mg nightly as a sleep aid Dressings: Remove shoulder bandage after 3 days. Leave the sticky Steri-Strips in place until they fall off or remove them after you shower. Cover the incisions with Band-Aids or leave them open to air. The biceps bandage (inside upper arm) is glued on separately. You may leave this one on a few days longer if it is difficult to remove. There is also glue underneath this bandage that can be left in place until it peels off. You may shower after 5 days. Follow-up: 10-[address] Woodson You may take off the leg compression stockings this evening at home. You may also leave them on a few days longer if you have a history of leg swelling or edema. Let us know right away if you develop any redness, drainage, fevers, chest pain, or trouble breathing. Do not drink alcohol or drive for at least 24 hours after anesthesia. Please call the office during business hours with any questions or concerns. Referrals: Hansel Woodson MD [ [facility] STAFF PHYSICIAN] - Discharge Orders Discharge Orders: Discharge Order (Routine); Ordered 08/23/21 Ordered By: Hansel Woodson DS: Diagnosis Discharge Diagnosis (1) Rupture of left proximal biceps tendon: Status: Acute (2) Complete rotator cuff tear: Status: Acute
--- NOTE | 2021-08-23 09:53 | ROE_ITS ---
Operative Note Operative Note DATE OF PROCEDURE: 08/23/21 PRE-OP DIAGNOSIS: Left: 1. Rotator cuff tear s/p allograft reconstruction 2. Proximal biceps rupture/biceps groove pain POST-OP DIAGNOSIS: same 3. Limited anterior supraspinatus rotator cuff repair re? tear PROCEDURE: Left: 1. Revision extensive debridement, CPT# 49540. This involved using arthroscopic hand instruments, power instruments, and radiofrequency instruments to remove a loose arthroscopic permanent suture, debride mild anterior superior and posterior synovitis, debride superior and posterior humeral head mild chondromalacia, and debride rotator interval tissue fraying working within the glenohumeral joint anteriorly, superiorly, and posteriorly. 2. Revision rotator cuff repair,, CPT# 40262. This involved suture repair of the anteriormost supraspinatus to the anterior superior capsular rotator cuff reconstruction. 3. Open biceps tenodesis, CPT# 07124. This involved reattaching the long head of the biceps tendon to the proximal humerus in the sub-pectoral area of the bicipital groove at the correct tension. The patient assistant was medically required in order to help assist in techniques above, which require positioning the arm, holding the arthroscope, and manipulating multiple instruments and sutures at the same time. This cannot be done without the help of an experienced patient assistant. SURGEON: Hansel Woodson TELEPHONE SOLICITOR: Ilya Curtis ANESTHESIA TYPE: Local By Surgeon, General LMA/ETT and Primary Nerve Block Refer to Anesthesia Record ESTIMATED BLOOD LOSS: 10 PATHOLOGY: none sent COMPLICATIONS: None Patient was transported to: PACU Patient's condition: stable Implants: Arthrex: Unicortical Proximal Biceps Tenodesis Button Indications: The patient was diagnosed with the above conditions and appropriately indicated for surgical intervention. Please see complete medical record for details. Findings: Exam under anesthesia: Moderately full range of motion not vigorously manipulated to about 45 degrees external rotation and 125 degrees forward elevation Glenohumeral joint: Loose permanent blue #2 FiberWire stitch in the glenohumeral joint. Intact allograft dermal superior capsular reconstruction. Intact subscapularis. Unable to visualize biceps tenodesis intra-articularly, but there was no loose prominent or visible suture anchor either. Mild anterior superior synovitis. Moderate rotator interval fraying and hemorrhagic inflamed tissue. Intact posterior rotator cuff to SCR repair. Subacromial space: Intact SCR. No significant bursitis. Excellent early synovial elevation over speed bridge SCR tuberosity fixation as well as intact posterior SCR to rotator cuff infraspinatus repair. Failure with moderate gapping at the anterior lateral rotator interval tissue probably containing anteriormost supraspinatus at the site of prior repair to the anterior lateral reconstruction. Procedure Description: In the operating room, general anesthesia was induced. Bilateral shoulders were examined. The patient was positioned in the beachchair position. All bony prominences were well-padded. Preoperative antibiotics were administered. The shoulder was prepped and draped in the usual sterile fashion. The correct patient, procedure, and side of the procedure were all verified prior to incision. Starting through the posterior portal a standard complete diagnostic arthroscopy was performed of the glenohumeral joint including inspection of the long head of the biceps, anterior and superior labrum, subscapularis tendon, supraspinatus and infraspinatus tendons, and axillary recess. The glenoid and humeral head cartilage as well as the posterior labrum were inspected from an anterior viewing portal. Significant findings and interventions noted above. Portals were carefully directed to avoid in the superior capsular reconstruction including place in the posterior portal inferior and medial through the infraspinatus body. A loose permanent suture material was removed using hand instruments in entirety. It appeared to be the stitch from the prior anterior SCR rotator cuff repair as it was not a suture tape FiberLink that had been used for the biceps tenodesis. A rigid cannula was inserted anteriorly. The reconstruction was inspected thoroughly at the glenoid and humeral margins with good integrity. The posterior rotator cuff side?2?side repair to the reconstruction was also intact. There was mild cartilage fibrillations posteriorly and superiorly about the humeral head that were lightly debrided debrided to a smooth margin. The radiofrequency wand was used to debride the rotator interval tissue moderate synovitis and inflammation. The biceps tendon arthroscopic attachment site could be visualized. There is no tendon remnant. No visible suture anchor with apparent bone and cartilage healing over the site. The anterior portal was carefully redirected to the open rotator interval space between the supraspinatus remnant and the reconstruction. The posterior portal was carefully directed with a blunt switching stick into the subacromial space, but had to be moved more lateral for proper visualization anteriorly with the posterior superior lateral portal reused. The graft had excellent coverage and integrity throughout the posterior and superior reconstruction site with intact posterior rotator cuff repair healing to the graft and greater tuberosity. There was a Moderately sized about the rotator interval. They Did extend to the medial aspect of the humeral head. The arm was positioned in external rotation to avoid restricting range of motion due to this anterior near the interval repair. Self retrieving suture passer was used to pass a suture tape through the anterior lateral capsular reconstruction through the anterior portal and then through the posterior portal used to pass the other end of the stitch through the anterior lateral probably anteriormost supraspinatus tissue. Both tails were brought out the anterior portal and the side to side repair secured with arthroscopic SMC knot. The repair had excellent tissue strength and well opposed the lateral aspect of the rotator interval and supraspinatus to the reconstruction graft. There was a smaller gap now more appropriately at the medial rotator interval space. There was no restriction to external rotation or undue tension or failure at the repair. 20 cc of 1.5% lidocaine with epinephrine was infiltrated about a 3 cm longitudinal incision at the inferior margin of the pectoralis major localized over the long head of the biceps tendon as well as about the arthroscopic portals. Blunt and sharp dissection were used to expose the tendon in the bicipital groove. The tendon was well fixated palpably in the bicipital groove. It could not be freed bluntly through this open subpectoral incision. Blunt scissors then passed through the anterior portal into the bicipital groove carefully and while maintaining tension on the biceps tendon the scissor tips carefully placed around the site of attachment and gently used to release the tendon in entirety from its discission. This bulbous tendon end was brought out of the wound and kept off the skin on top of a blue towel. The correct location for sub-pectoral fixation was localized, prepped with a rasp, and then drilled with a 3.2 mm drill pin in a unicortical fashion. Using a fiber loop suture the tendon was prepped from the musculotendinous junction a few centimeters proximal. The excess tendon was amputated. The free suture ends were then passed through the unicortical button implant. The drill pin was removed and the implant was placed into the humeral intramedullary canal. The button was flipped and the sutures were tensioned bringing the tendon down to bone. Tension and fixation were then tested and found to be appropriate. The free suture ends were on either side of the tendon and were tied compressing tendon to bone. The wound was copiously irrigated with normal saline. Subcutaneous tissue was closed using 3-0 Monocryl in a buried interrupted fashion. Skin was closed using 3-0 Monocryl in a buried subcuticular running fashion. Skin glue was applied over the incision. Mastisol was applied about the incision. The incision was covered with Telfa, gauze, and covered with a Tegaderm dressing. The shoulder was drained of arthroscopic fluid. All portal sites were copiously irrigated. These incisions were closed using 3-0 Monocryl in a buried fashion and then covered with Mastisol, Steri-Strips, Xeroform, dry gauze, and ABDs. The dressings were covered and secured with Medipore tape. The operative extremity was placed into a sling for immobilization. The patient awoke from anesthesia without complication and was transferred to the recovery room in a stable condition.
--- NOTE | 2021-08-23 10:36 | W.ANESPOSTOP ---
Postoperative Evaluation Date, Time and Location Date Performed: 08/23/21 Time Performed: 10:36 Patient Location: PACU Vital Signs Most Recent Imported Vital Signs: Most Recent Vital Signs Temp Pulse Resp BP Pulse Ox 36.6 C 65 14 92/56 L 97 08/23/21 10:34 08/23/21 10:34 08/23/21 10:34 08/23/21 10:34 08/23/21 10:34 Pain Score Most Recent Pain Score: Most Recent Pain Score Pain Level 0 08/23/21 10:34 Assessment Mental Status: Awake (Alert & Oriented to Patient Baseline) Airway and Respiratory Function: Patent airway with normal (patient baseline) respiratory exam Cardiovascular Function: Hemodynamically Stable Hydration Status: Adequately Hydrated Nausea & Vomiting: No Nausea or Vomiting Pain: Pain is tolerable per patient Peripheral Nerve Block: Regional nerve block not resolved at time of post operative discharge
[2021-08-23] MEDS: oxyCODONE 5 MG TAB PO (11:18)
== END 2021-08-23 12:08 | disposition home or self-care (01) ==
PROVIDERS: PCP Physician Assistant; Visit Provider Student in an Organized Health Care Education/Training Program
PROC: (CPT 29805; principal; 2021-08-23 07:30)
DX: S46.212A Strain of muscle, fascia and tendon of other parts of biceps, left arm, initial encounter (principal); M75.122 Complete rotator cuff tear or rupture of left shoulder, not specified as traumatic; E11.22 Type 2 diabetes mellitus with diabetic chronic kidney disease; N18.30 Chronic kidney disease, stage 3 unspecified; I12.9 Hypertensive chronic kidney disease with stage 1 through stage 4 chronic kidney disease, or unspecified chronic kidney disease; X58.XXXA Exposure to other specified factors, initial encounter
CPT/HCPCS: 23430; 29827; 29823; 76942; J0690; J1100; J2250; J2370; J2405; J2704

== ENCOUNTER 2022-07-17 01:41 | Outpatient (CLI) | payer BC, MEDICAID, SELFPAY ==
[2022-07-17 16:53] LABS: HCT 39.1 % (40.0-50.0); HGB 13.9 g/dL (13.5-17.5); MCH 31.2 pg (27.0-33.0); MCHC 35.5 % (32.0-36.0); MCV 88 fL (80-95); MPV 8.8 fL (8.0-11.0); Platelet Count 158 10^3/uL (130-400); RBC 4.46 10^6/uL (4.36-5.78); RDW-SD 38.6 fL; WBC 7.79 10^3/uL (4.4-10.8)
[2022-07-17 17:09] LABS: Hemoglobin A1C 6.7 % (<5.7)
[2022-07-17 17:57] LABS: Bilirubin Negative (Negative); Blood Negative (Negative); Clarity Clear (Clear); Glucose Negative (Negative); Ketones Negative (Negative); Leukocyte Esterase Negative (Negative); Nitrite Negative (Negative); Urobilinogen 0.2 mg/dL (Up to 0.2)
[2022-07-17 18:15] LABS: Anion Gap 7.9 mmol/L (3-11); BUN 31 mg/dL (7-18); CO2 28.1 mmol/L (21.0-32.0); CREATININE 2.1 mg/dL (0.70-1.30); Calcium 9.7 mg/dL (8.5-10.1); Chloride 102 mmol/L (98-107); Estimated GFR 35.37 (mL/min/1.73m2); PHOSPHORUS 3.8 mg/dL (2.6-4.7); Potassium 4.2 mmol/L (3.5-5.1); Sodium 138 mmol/L (136-145)
[2022-07-17 18:23] LABS: COMMENT (LAB VIEW ONLY) 32.83 mg/dL; Microalb ug/mg Crea 5.5 ug/mg Cr
== END 2022-07-17 01:42 | disposition home or self-care (01) ==
LOC: LBO 01:41
PROVIDERS: Student in an Organized Health Care Education/Training Program; PCP Physician Assistant; Visit Provider Internal Medicine
DX: N18.32 Chronic kidney disease, stage 3b; E08.22 Diabetes mellitus due to underlying condition with diabetic chronic kidney disease; I10 Essential (primary) hypertension
CPT/HCPCS: 36415; 80051; 84520; 85027; 81003; 82040; 82043; 82310; 82565; 82570; 83036; 84100

== ENCOUNTER 2022-09-22 12:48 | Outpatient (REF) | payer BC, MEDICAID, SELFPAY ==
[2022-09-22 15:29] LABS: HCT 36.6 % (40.0-50.0); HGB 12.6 g/dL (13.5-17.5); MCH 31.1 pg (27.0-33.0); MCHC 34.4 % (32.0-36.0); MCV 90 fL (80-95); MPV 9.7 fL (8.0-11.0); Platelet Count 154 10^3/uL (130-400); RBC 4.05 10^6/uL (4.36-5.78); RDW 13.2 % (11.8-14.1); RDW-SD 43.8 fL; WBC 6.12 10^3/uL (4.4-10.8)
[2022-09-22 15:55] LABS: ALT 22 U/L (16-63); AST 16 U/L (15-37); Albumin 4.1 g/dL (3.4-5.0); Alkaline Phosphatase 76 U/L (46-116); Anion Gap 7.4 mmol/L (3-11); BUN 24 mg/dL (7-18); Bilirubin, Total 0.7 mg/dL (0.2-1.0); CO2 28.6 mmol/L (21.0-32.0); CREATININE 1.8 mg/dL (0.70-1.30); Calcium 9.5 mg/dL (8.5-10.1); Calculated LDL 74 mg/dL (<100); Chloride 104 mmol/L (98-107); Cholesterol 133 mg/dL (<200); Estimated GFR 42.56 (mL/min/1.73m2); Glucose 191 mg/dL (74-106); HDL Cholesterol 45 mg/dL (40-60); Potassium 4.8 mmol/L (3.5-5.1); Sodium 140 mmol/L (136-145); Total Protein 7.4 g/dL (6.4-8.2); Triglyceride 74 mg/dL (<150)
[2022-09-22 17:48] LABS: Microalb ug/mg Crea 24.6 ug/mg Cr
[2022-09-23 12:14] LABS: Hemoglobin A1C 7.1 % (<5.7)
== END 2022-09-22 12:49 | disposition home or self-care (01) ==
LOC: NCHCN 12:48
PROVIDERS: PCP Physician Assistant; Visit Provider Physician Assistant
DX: E11.43 Type 2 diabetes mellitus with diabetic autonomic (poly)neuropathy (principal); D64.9 Anemia, unspecified; R79.89 Other specified abnormal findings of blood chemistry
CPT/HCPCS: 80053; 80061; 85027; 82043; 82570; 83036

== ENCOUNTER 2022-10-28 07:37 | Emergency (ER) | payer BC, MEDICAID, SELFPAY ==
[2022-10-28] VITALS (12 sets, daily range): BP systolic 124–167; BP diastolic 77–101; PULSE 57–79; RESP 12–20; O2SAT 100
--- NOTE | 2022-10-28 07:30 | RT.EKG_ITS ---
APPROVED REPORT Exam: Resting ECG Reason for Exam: chest pain Patient Location: E HR:73 bpm ECG Measurements Heart Rate 73 AXIS LA 165 P 78 QRSd 90 QRS 94 QT 377 T 94 QTc 414 Conclusion Sinus rhythm...normal P axis, V-rate 60- 99 Inferoposterior infarct, acute...ST>.1 inf, <-.1 V1-3 or >.05 V7-9 ST elevation, consider anterior injury...ST >0.15mV, V1-V5 sinus rhythm, normal axis, ST segment elevation II III aVF, with T wave inversions and ST depressions aVL, V1 V2
--- NOTE | 2022-10-28 07:30 | DI.RAD_ITS ---
Exam(s) XR PORTABLE CHEST AP EXAM: XR PORTABLE CHEST AP CLINICAL HISTORY: severe anterior chest pain TECHNIQUE: 2D digital imaging was performed. COMPARISON: No exams were available for comparison FINDINGS: LUNGS: Clear. No pleural abnormality seen. HEART: Normal size. AORTA: Normal diameter. Mildly tortuous. BONES: Unremarkable for age. Soft tissues: Unremarkable. IMPRESSION: No acute findings. DATA REPOSITORY: RADIATION DOSE DELIVERED:
--- NOTE | 2022-10-28 07:43 | W.ED.GENAD ---
Discharge Plan Disposition Patient Disposition: Transfer-Acute Inpatient Care Specific Acute Inpt Facility: [facility] Condition: Stable Discharge Details Chief Complaint: Chest Pain Clinical Impression: ST elevation (STEMI) myocardial infarction Primary Care Provider: Cayden Hopkins ED Provider: Ray Baum Home Meds and New Rx's Prescriptions: No Action tamsulosin [Flomax] 0.4 mg capsule 0.4 mg PO DAILY atorvastatin 10 mg tablet 10 mg PO DAILY doxycycline hyclate 100 mg capsule 100 mg PO DAILY Adult 50 Plus Probiotic 4 billion cell capsule 4,000 mmu cells PO DAILY Rx Instructions: administer with a meal azithromycin 250 mg capsule PO Patient Comments: not taking at the moment 10/28/22 atovaquone-proguanil 250-100 mg tablet 1 tab PO DAILY Patient Comments: not taking at the moment 10/28/22 Rx Instructions: must administer with food, preferably a high-fat meal losartan 25 mg Tablet 25 mg PO DAILY clindamycin phosphate 1 % lotion 1 applic topical PRN PRN diphenhydramine-acetaminophen [Tylenol PM Extra Strength] 25-500 mg Tablet 2 tab PO PRN PRN Jardiance 10 mg tablet 10 mg PO DAILY Patient Comments: TAKE 1 TABLET BY MOUTH ONCE DAILY metformin 500 mg Tablet 500 mg PO BID finasteride 5 mg Tablet 5 mg PO DAILY acetaminophen [Acetaminophen Extra Strength] 500 mg Tablet 500 mg PO Q6H PRN Medical Decision Making 62-year-old male history of diabetes hypertension hyperlipidemia presents with nonradiating anterior chest pain over the past couple days worse acutely over the last 30 minutes. Subjective shortness of breath, lungs clear bilaterally, no peripheral edema, speaking full sentences. Recent hospitalization in August for lower extremity cellulitis. Denies history of coronary disease or thromboembolic disease. Must consider ACS versus PE versus myocarditis versus pericarditis versus pleurisy versus pneumothorax versus esophagitis versus GERD must also consider aortic pathology however normal mentation good perfusion with equal radial pulses nonradiating discomfort. Will obtain stat EKG stat chest x-ray labs troponin aspirin will consider CT chest pending reassessment and results. 7: [address] segment elevation HI inferior leads II, III, aVF with reciprocal changes in aVL V1 V2, given acute onset symptomatology history physical EKG findings have discussed risks and benefits of thrombolytics with patient, have placed stat consultation for transfer with [facility] cardiology, will load with Plavix and high-dose atorvastatin. 8: 35 have discussed case with [facility] cardiology excepting physician Dr. Tubbs; have initiated heparin infusion, patient amenable and consulting to transfer. Repeat EKG showing sinus rhythm with no evidence of ST segment elevation, chest pain has resolved. Patient remains hemodynamically stable. HPI General Date/Time Provider Initiated Documentation: 10/28/22 07:41. HPI Narrative: 62-year-old male history of diabetes hyperlipidemia hypertension presents with anterior chest pain over the past several days worse this morning nonradiating associate with mild shortness of breath. Denies leg swelling or pain, does have a history of recent hospitalization 8-day stay in [place] in August for cellulitis of lower extremity. Denies history of coronary disease or thromboembolic disease Related Data Home Medications Medication Instructions Recorded Confirmed finasteride 5 mg tablet 5 mg PO DAILY 07/24/20 10/28/22 metformin 500 mg tablet 500 mg PO BID 07/24/20 10/28/22 doxycycline hyclate 100 mg capsule 100 mg PO DAILY 04/23/21 10/28/22 clindamycin phosphate 1 % lotion 1 applic topical PRN PRN 05/31/21 10/28/22 diphenhydramine 25 2 tab PO PRN PRN 05/31/21 10/28/22 mg-acetaminophen 500 mg tablet (Tylenol PM Extra Strength) losartan 25 mg tablet 25 mg PO DAILY 05/31/21 10/28/22 lactobacillus combination no.9 4 4,000 mmu cells PO DAILY 07/24/21 10/28/22 billion cell capsule (Adult 50 Plus Probiotic) acetaminophen 500 mg tablet 500 mg PO Q6H PRN 08/23/21 10/28/22 (Acetaminophen Extra Strength) atovaquone 250 mg-proguanil 100 mg 1 tab PO DAILY 12/31/21 05/06/22 tablet azithromycin 250 mg capsule mg PO 12/31/21 05/06/22 atorvastatin 10 mg tablet 10 mg PO DAILY 05/06/22 10/28/22 tamsulosin 0.4 mg capsule (Flomax) 0.4 mg PO DAILY 05/06/22 10/28/22 empagliflozin 10 mg tablet 10 mg PO DAILY 10/28/22 10/28/22 (Jardiance) Allergies Allergy/AdvReac Type Severity Reaction Status Date / Time thiopental [From Pentothal] Allergy Severe Paralysis Verified 10/28/22 08:13 Penicillins Allergy Intermediate Skin Rash Verified 10/28/22 08:13 succinylcholine AdvReac Severe Other (See Verified 10/28/22 08:13 Comment) General PAVAN: 3 Review of Systems Narrative: Review of Systems Constitutional: negative Eyes: negative ENT: negative Cardiovascular: Chest pain Respiratory: negative Gastrointestinal: negative : negative Musculoskeletal: negative Skin: negative Neurologic: negative Psych: negative PFSH All Active Problems (Updated 10/28/22 @ 08:38 by Ray Baum MD) ST elevation (STEMI) myocardial infarction (Acute) Rotator cuff tear arthropathy of left shoulder (Acute) Pseudocholinesterase deficiency (Acute) Pain in right lower leg (Acute) Chronic skin ulcer (Acute) Medical History (Updated 10/28/22 @ 08:38 by Ray Baum MD) 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 Bursitis of left shoulder HTN (hypertension) Hx of Lyme disease Rupture of left proximal biceps tendon Stage III chronic kidney disease Tendinitis of long head of biceps brachii of left shoulder Type 2 diabetes mellitus Surgical History Hx of appendectomy Hx of shoulder surgery Social History Smoking/Tobacco Use Status: Never Smoking risk assessment performed?: Yes Alcohol Intake: current Alcohol Intake frequency: a few times a month Alcohol type: beer Substance use type: does not use Housing: house Current gender identity: male Do you feel safe at home: Yes Do you feel safe in your relationship?: Yes Additional Social history: 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 Exam Narrative Exam Narrative: Physical Examination General: alert, awake, cooperative, appears uncomfortable HEENT: normocephalic, atraumatic; PERRL, EOM intact, conjunctiva normal; no nasal discharge; moist mucous membranes, oral and pharyngeal mucosa normal, tolerating secretions Neck: supple, trachea midline; full ROM Chest: normal to inspection Respiratory: normal respiratory effort, speaking in full sentences, clear to auscultation, no wheezing, rales or rhonchi Cardiac: regular rate, regular rhythm, S1S2 intact, no murmurs rubs or gallops GI: abdomen soft, non-tender, non-distended; no palpable mass or hepatosplenomegaly Skin: no lesions, rashes or trauma appreciated Neuro: AAOx3, normal speech, moving all extremities Extremities: No peripheral edema Psych: Appropriate mood and affect Critical Care Time Critical Care Time Attestation: 30 minutes of critical care time. Critical care time spent the bedside assessing patient interpreting labs interpreting EKG, cording specialty care and patient with ST segment elevation myocardial infarction requiring transfer for catheterization and cardiac care unit admission
[2022-10-28] MEDS: Ondansetron 4 MG/2 ML VIAL IVP (07:48)
[2022-10-28] MEDS: Aspirin 81 MG CHEW 324 MG CH (07:48)
[2022-10-28] MEDS: MORPHine 4 MG/ML SYR 2 MG IVP (07:49)
[2022-10-28] MEDS: Atorvastatin 40 MG TAB 80 MG PO (07:59)
[2022-10-28] MEDS: Clopidogrel 300 MG TAB PO (07:59)
[2022-10-28 08:01] LABS: Abs Immature Grans 0.02 10^3/uL (0.0-0.06); Absolute Basophil Count 0.05 10^3/uL (0.0-0.2); Absolute Lymphocyte Count 1.61 10^3/uL (1.2-3.4); Absolute Monocyte Count 0.67 10^3/uL (0.1-0.8); Absolute Neutrophil Count 4.11 10^3/uL (1.2-6.7); Basophils % 0.8; Eosinophils % 1.5; HCT 43.4 % (40.0-50.0); HGB 14.9 g/dL (13.5-17.5); Immature Grans % 0.3; Lymphocytes % 24.5; MCH 29.7 pg (27.0-33.0); MCHC 34.3 % (32.0-36.0); MCV 87 fL (80-95); MPV 8.8 fL (8.0-11.0); Monocytes % 10.2; Neutrophils % 62.7; Platelet Count 168 10^3/uL (130-400); RBC 5.02 10^6/uL (4.36-5.78); RDW 12.9 % (11.8-14.1); RDW-SD 40.7 fL; WBC 6.56 10^3/uL (4.4-10.8)
[2022-10-28] MEDS: Tenecteplase 50 MG KIT 40 MG IVP (08:05)
[2022-10-28 08:14] LABS: INR 1.1 (0.9-1.1); PTT Activated 22.6 sec (21.5-31.9); Prothrombin Time 11.4 sec (9.3-11.0)
--- NOTE | 2022-10-28 08:15 | RT.EKG_ITS ---
APPROVED REPORT Exam: Resting ECG Reason for Exam: stemi, post tnk Patient Location: E HR:67 bpm ECG Measurements Heart Rate 67 AXIS GA 185 P 71 QRSd 86 QRS 73 QT 383 T 59 QTc 406 Conclusion Sinus rhythm...normal P axis, V-rate 60- 99 Low voltage, extremity and precordial leads...extremity<0.5mV, precordial<1.0mV sinus rhtyhm, normal axis, resolved ST segment elevations and t wave inversion/st depressions seen on prior ekg
[2022-10-28] MEDS: Heparin in 0.45% NaCl 25,000 UNIT/250 ML BAG 8.7 UNIT IV (08:26)
[2022-10-28 08:30] LABS: ALT 21 U/L (16-63); AST 13 U/L (15-37); Albumin 4.4 g/dL (3.4-5.0); Alkaline Phosphatase 85 U/L (46-116); Anion Gap 11.8 mmol/L (3-11); BUN 29 mg/dL (7-18); Bilirubin, Total 0.7 mg/dL (0.2-1.0); CO2 28.2 mmol/L (21.0-32.0); Calcium 9.7 mg/dL (8.5-10.1); Chloride 104 mmol/L (98-107); Glucose 202 mg/dL (74-106); Magnesium 2.1 mg/dL (1.8-2.4); Potassium 3.7 mmol/L (3.5-5.1); Sodium 144 mmol/L (136-145); Total Protein 7.9 g/dL (6.4-8.2); Troponin I < 50 ng/L (<or=60)
[2022-10-28 08:53] LABS: NT-proBNP 48 pg/mL (<300)
--- NOTE | 2022-10-28 11:31 | NUR.NOTE ---
0853 patient transferred to [facility] for STEMI. Pain free and in NSR on departure. IV x 2 18 Rt AC & 18 Rt forearm. Heparin infusing at 870 ml/hr. IV sites patent. Denies Chest pain. Vitals 0853 164/87 HR 81 RR 16 Sat 99% RA NSR 0907 146/94 HR 64 RR 15 Sat 98% 0917 151/106 HR 73 RR 16 Sat 97% RA NSR denies CP 0927 145/91 77 15 96% NSR 0937 144/88 75 16 99% RA NSR denies CP 0947 138/91 76 14 (*% NSR denies CP 0953 152/87 78 16 99% CP of 03/25 1000 arrival to [facility] taken directly to director of cath lab.
== END 2022-10-28 08:51 | disposition short-term general hospital (02) ==
PROVIDERS: Emergency Provider Emergency Medicine; PCP Physician Assistant
DX: I21.3 ST elevation (STEMI) myocardial infarction of unspecified site (principal); E11.9 Type 2 diabetes mellitus without complications; I10 Essential (primary) hypertension; E78.5 Hyperlipidemia, unspecified
CPT/HCPCS: 80053; 93005; 96365; 96375; 99291; 71045; 83735; 83880; 84484; 85025; 85610; 85730; 93010; J2270; J2405; J3101

== ENCOUNTER 2022-11-04 17:55 | Inpatient (IN) | payer BC, MEDICAID, SELFPAY ==
[2022-11-04] VITALS (61 sets, daily range): BP systolic 107–131; BP diastolic 72–94; PULSE 52–72; RESP 9–20; TEMP 36.8; O2SAT 88
--- NOTE | 2022-11-04 17:45 | RT.EKG_ITS ---
APPROVED REPORT Exam: Resting ECG Reason for Exam: chest pain,recent heart attack Patient Location: E HR:71 bpm ECG Measurements Heart Rate 71 AXIS MS 174 P 47 QRSd 88 QRS -26 QT 369 T 21 QTc 402 Conclusion Sinus rhythm...normal P axis, V-rate 60- 99 sinus rhytm, left axis, inferior q waves
--- NOTE | 2022-11-04 18:00 | DI.RAD_ITS ---
Exam(s) XR PORTABLE CHEST AP EXAM: XR PORTABLE CHEST AP CLINICAL HISTORY: chest pain TECHNIQUE: 2D digital imaging was performed of the chest. One image was obtained. An AP view was ob tained. COMPARISON: CR XR PORTABLE CHEST AP from 10/28/2022 FINDINGS: MEDIASTINUM: Normal. HEART: Normal. PULMONARY VASCULATURE: Normal. LUNGS: Clear. PLEURAL SPACE: No pleural effusion or pneumothorax. BONE:Within normal limits for the patient's age. OTHER FINDINGS:Normal. IMPRESSION: No acute pulmonary findings. DATA REPOSITORY: RADIATION DOSE DELIVERED:
[2022-11-04] MEDS: Aspirin 81 MG CHEW 324 MG CH (18:15)
[2022-11-04 18:24] LABS: Abs Immature Grans 0.02 10^3/uL (0.0-0.06); Absolute Basophil Count 0.04 10^3/uL (0.0-0.2); Absolute Eosinophil Count 0.12 10^3/uL (0.0-0.7); Absolute Lymphocyte Count 1.71 10^3/uL (1.2-3.4); Absolute Monocyte Count 0.72 10^3/uL (0.1-0.8); Absolute Neutrophil Count 5.71 10^3/uL (1.2-6.7); Basophils % 0.5; Eosinophils % 1.4; HCT 41.5 % (40.0-50.0); HGB 14.6 g/dL (13.5-17.5); Immature Grans % 0.2; Lymphocytes % 20.6; MCHC 35.2 % (32.0-36.0); MCV 85 fL (80-95); MPV 9.1 fL (8.0-11.0); Monocytes % 8.7; Neutrophils % 68.6; Platelet Count 194 10^3/uL (130-400); RBC 4.87 10^6/uL (4.36-5.78); RDW 12.8 % (11.8-14.1); RDW-SD 39.5 fL; WBC 8.32 10^3/uL (4.4-10.8)
--- NOTE | 2022-11-04 18:25 | ED.GENADUL_ITS ---
Discharge Plan Discharge Details Chief Complaint: Chest Pain Clinical Impression: Chest pain Primary Care Provider: Cayden Hopkins ED Provider: Ray Baum Home Meds and New Rx's Prescriptions: No Action tamsulosin [Flomax] 0.4 mg capsule 0.4 mg PO DAILY atorvastatin 80 mg tablet 80 mg PO DAILY clopidogrel 75 mg tablet 75 mg PO DAILY doxycycline monohydrate 100 mg capsule 100 mg PO DAILY hydrochlorothiazide 12.5 mg tablet 12.5 mg PO DAILY metoprolol succinate 50 mg tablet extended release 24 hr 50 mg PO DAILY nitroglycerin 0.4 mg tablet, sublingual 0.4 mg sublingual ONCE Rx Instructions: as a single dose; administer 5-10 minutes before situation known to precipitate angina attack Adult 50 Plus Probiotic 4 billion cell capsule 4,000 mmu cells PO DAILY Rx Instructions: administer with a meal azithromycin 250 mg capsule PO Patient Comments: not taking at the moment 10/28/22 atovaquone-proguanil 250-100 mg tablet 1 tab PO DAILY Patient Comments: not taking at the moment 10/28/22 Rx Instructions: must administer with food, preferably a high-fat meal losartan 25 mg Tablet 25 mg PO DAILY clindamycin phosphate 1 % lotion 1 applic topical PRN PRN diphenhydramine-acetaminophen [Tylenol PM Extra Strength] 25-500 mg Tablet 2 tab PO PRN PRN Jardiance 10 mg tablet 10 mg PO DAILY Patient Comments: TAKE 1 TABLET BY MOUTH ONCE DAILY metformin 500 mg Tablet 500 mg PO BID finasteride 5 mg Tablet 5 mg PO DAILY acetaminophen [Acetaminophen Extra Strength] 500 mg Tablet 500 mg PO Q6H PRN Medical Decision Making 62-year-old male history of recent STEMI with RCA stenting presents with chest pain over the past couple days worse over the past couple of hours anterior nature rating to right chest. Hemodynamically stable afebrile nontoxic no hyp oxia despite initial O2 saturation on arrival patient's actual saturation at bedside is high 90s on room air, no peripheral edema no history of thromboembolic disease. Consider recurrent ACS versus early CHF versus Rachelle syndrome versus pleurisy versus costochondritis versus anxiety versus less likely pneumonia versus less likely PE or aortic pathology. Screening labs aspirin chest x-ray EKG 2 troponin close reassessment. Patient has follow-up cardiology appointment in the next couple of months as well as primary care appointment within the next week 19: 25 for troponin mildly elevated. Reassessing EKG. Hemodynamically stable. Awaiting second troponin for disposition HPI General Date/Time Provider Initiated Documentation: 11/04/22 18:12 . HPI Narrative: 62-year-old male with recent STEMI with stenting to the RCA presents with recurrent chest pain over the last couple of days worse this afternoon, anterior rating to the right side of his chest Related Data Home Medications Medication Instructions Recorded Confirmed finasteride 5 mg tablet 5 mg PO DAILY 07/24/20 11/04/22 metformin 500 mg tablet 500 mg PO BID 07/24/20 11/04/22 clindamycin phosphate 1 % lotion 1 applic topical PRN PRN 05/31/21 11/04/22 diphenhydramine 25 2 tab PO PRN PRN 05/31/21 11/04/22 mg-acetaminophen 500 mg tablet (Tylenol PM Extra Strength) losartan 25 mg tablet 25 mg PO DAILY 05/31/21 11/04/22 lactobacillus combination no.9 4 4,000 mmu cells PO DAILY 07/24/21 11/04/22 billion cell capsule (Adult 50 Plus Probiotic) acetaminophen 500 mg tablet 500 mg PO Q6H PRN 08/23/21 11/04/22 (Acetaminophen Extra Strength) atovaquone 250 mg-proguanil 100 mg 1 tab PO DAILY 12/31/21 11/04/22 tablet azithromycin 250 mg capsule mg PO 12/31/21 11/04/22 tamsulosin 0.4 mg capsule (Flomax) 0.4 mg PO DAILY 05/06/22 11/04/22 empagliflozin 10 mg tablet 10 mg PO DAILY 10/28/22 11/04/22 (Jardiance) atorvastatin 80 mg tablet 80 mg PO DAILY 11/04/22 11/04/22 clopidogrel 75 mg tablet 75 mg PO DAILY 11/04/22 11/04/22 doxycycline monohydrate 100 mg 100 mg PO DAILY 11/04/22 11/04/22 capsule hydrochlorothiazide 12.5 mg tablet 12.5 mg PO DAILY 11/04/22 11/04/22 metoprolol succinate 50 mg 50 mg PO DAILY 11/04/22 11/04/22 tablet,extended release 24 hr nitroglycerin 0.4 mg sublingual 0.4 mg sublingual ONCE 11/04/22 11/04/22 tablet Allergies Allergy/AdvReac Type Severity Reaction Status Date / Time thiopental [From Pentothal] Allergy Severe Paralysis Verified 11/04/22 08:07 Penicillins Allergy Intermediate Skin Rash Verified 11/04/22 08:07 succinylcholine AdvReac Severe Other (See Verified 11/04/22 08:07 Comment) Iodinated Contrast Media AdvReac Other (See Unverified 11/04/22 08:07 Comment) General Stated Complaint: Chest Pain PAVAN: 2 Review of Systems Narrative: Review of Systems Constitutional: negative Eyes: negative ENT: negative Cardiovascular: Chest pain Respiratory: negative Gastrointestinal: negative : negative Musculoskeletal: negative Skin: negative Neurologic: negative Psych: negative PFSH All Active Problems (Updated 11/04/22 @ 19:26 by Ray Baum MD) ST elevation (STEMI) myocardial infarction (Acute) Chest pain (Acute) Rotator cuff tear arthropathy of left shoulder (Acute) Pseudocholinesterase deficiency (Acute) Pain in right lower leg (Acute) Chronic skin ulcer (Acute) Medical History (Updated 11/04/22 @ 19:26 by Ray Baum MD) 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 Bursitis of left shoulder HTN (hypertension) Hx of Lyme disease Rupture of left proximal biceps tendon Stage III chronic kidney disease Tendinitis of long head of biceps brachii of left shoulder Type 2 diabetes mellitus Surgical History Hx of appendectomy Hx of shoulder surgery Social History Smoking/Tobacco Use Status: Never Smoking risk assessment performed?: Yes Alcohol Intake: current Alcohol Intake frequency: a few times a month Alcohol type: beer Substance use type: does not use Housing: house Current gender identity: male Do you feel safe at home: Yes Do you feel safe in your relationship?: Yes Additional Social history: 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 Exam Narrative Exam Narrative: Physical Examination General: alert, awake, cooperative, appears uncomfortable HEENT: normocephalic, atraumatic; PERRL, EOM intact, conjunctiva normal; no nasal discharge; moist mucous membranes, oral and pharyngeal mucosa normal, tolerating secretions Neck: supple, trachea midline; full ROM Chest: normal to inspection Respiratory: normal respiratory effort, speaking in full sentences, clear to auscultation, no wheezing, rales or rhonchi Cardiac: regular rate, regular rhythm, S1S2 intact, no murmurs rubs or gallops GI: abdomen soft, non-tender, non-distended; no palpable mass or hepatosplenomegaly Skin: no lesions, rashes or trauma appreciated Neuro: AAOx3, normal speech, moving all extremities Extremities: No peripheral edema Psych: Appropriate mood and affect Course Vital Signs Vital signs: Vital Signs Temperature 36.8 C 11/04/22 18:02 Pulse 66 11/04/22 18:02 Respiratory Rate 20 11/04/22 18:02 Blood Pressure 129/76 11/04/22 18:02 Pulse Oximetry 88 L 11/04/22 18:02 Temperature 36.8 C 11/04/22 18:02 Pulse 66 11/04/22 18:02 Respiratory Rate 20 11/04/22 18:02 Blood Pressure 129/76 11/04/22 18:02 Blood Pressure Position Sitting 11/04/22 18:02 Pulse Oximetry 88 L 11/04/22 18:02 Oxygen Delivery Method Room Air 11/04/22 18:02 Oxygen Flow Rate 0 11/04/22 18:02 Pain Level 3 11/04/22 18:02 Sign Out Sign Out Data: Sign Out Comment: recent STEMI with RCA stenting, chest pain for days worse this afternoon; pending two trop, reassessment of symptoms for dispo Last updated by Ray Baum MD at 11/04/22 19:24
[2022-11-04 18:53] LABS: INR 1.2 (0.9-1.1); PTT Activated 24.6 sec (21.5-31.9); Prothrombin Time 11.9 sec (9.3-11.0)
[2022-11-04 18:55] LABS: ALT 25 U/L (16-63); AST 18 U/L (15-37); Albumin 4.3 g/dL (3.4-5.0); Alkaline Phosphatase 120 U/L (46-116); Anion Gap 13.2 mmol/L (3-11); BUN 30 mg/dL (7-18); Bilirubin, Total 0.8 mg/dL (0.2-1.0); CO2 23.8 mmol/L (21.0-32.0); CREATININE 2.1 mg/dL (0.70-1.30); Calcium 9.7 mg/dL (8.5-10.1); Chloride 98 mmol/L (98-107); Estimated GFR 35.37 (mL/min/1.73m2); Glucose 170 mg/dL (74-106); NT-proBNP 121 pg/mL (<300); Potassium 3.8 mmol/L (3.5-5.1); Sodium 135 mmol/L (136-145); Total Protein 7.9 g/dL (6.4-8.2)
[2022-11-04 19:02] LABS: Troponin I 79 ng/L (<or=60)
--- NOTE | 2022-11-04 19:15 | RT.EKG_ITS ---
APPROVED REPORT Exam: Resting ECG Reason for Exam: chest pain Patient Location: E HR:62 bpm ECG Measurements Heart Rate 62 AXIS RI 179 P 58 QRSd 91 QRS -12 QT 375 T 16 QTc 382 Conclusion Sinus rhythm...normal P axis, V-rate 60- 99 Physician: no stemi
[2022-11-04 21:35] LABS: Troponin I 74 ng/L (<or=60)
--- NOTE | 2022-11-04 22:29 | HPE_ITS ---
Date of service: 11/04/22 Time of Service: 22:29 Assessment and Plan Assessment and plan (1) Chest pain: Status: Acute Assessment and plan: This is a 62-year-old gentleman who was having exertional chest pain over the last couple days which is worsening status post STEMI about 1 week ago with stenting of RCA. He does have some pain radiating around his chest on the right he does still have his gallbladder. He will be placed on Protonix. He still having gallbladder evaluation but for now with his elevation of troponins and response to nitroglycerin, he will have cardiac work-up for reevaluation of his CAD. He is a full code. (2) ST elevation (STEMI) myocardial infarction: Status: Acute Assessment and plan: Patient is status post STEMI with nitroglycerin responsive chest pain presently. Continue Nitropaste topically with heparin infusion with [place] [facility] [place]. He did have stenting of his RCA when he was evaluated for STEMI. The symptoms are not as severe as his acute STEMI. (3) Stage III chronic kidney disease: Assessment and plan: Chronic and appears stable with patient to be trended. Avoid over doing dye studies. Troponins may remain elevated with CKD. (4) Type 2 diabetes mellitus: Assessment and plan: Glucometer management with insulin coverage as needed. History of Present Illness History of Present Illness Chief Complaint: Exertional stuttering retrosternal pain with radiation to right chest Narrative: This is a 62-year-old gentleman who had a STEMI with cardiac catheterization and stenting of [place] [facility] [place] the last couple weeks now presenting with mi nimally exertional retrosternal chest pain. Sharp and radiates into his right chest with slight headache but no nausea, vomiting or diaphoresis. He was seen in the ED after 2 days of discomfort and worsening. He was noted to have an elevation in his troponin which is new but plateauing and he was pain-free with Nitropaste. As well as after initiated heparin infusion as [place] [facility] [place]. He is to be transferred [place] [facility] [place] for further interventions and evaluation with his elevated troponins and recurrent symptoms. 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 He is presently pain-free. He did receive loading dose of Plavix and aspirin in the ED accommodating his daily dosing which has been initiated since his stenting. He offers no other complaints. He is a full code. Review of Systems Narrative: 13 point review of systems otherwise unrevealing or stable. PFSH All Active Problems Non-ST elevation DC (NSTEMI) (Acute) ST elevation (STEMI) myocardial infarction (Acute) Chest pain (Acute) Rotator cuff tear arthropathy of left shoulder (Acute) Pseudocholinesterase deficiency (Acute) Pain in right lower leg (Acute) Chronic skin ulcer (Acute) Medical History 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 Bursitis of left shoulder HTN (hypertension) Hx of Lyme disease Rupture of left proximal biceps tendon Stage III chronic kidney disease Tendinitis of long head of biceps brachii of left shoulder Type 2 diabetes mellitus Surgical History Hx of appendectomy Hx of shoulder surgery Social History Smoking/Tobacco Use Status: Never Smoking risk assessment performed?: Yes Alcohol Intake: current Alcohol Intake frequency: a few times a month Alcohol type: beer Substance use type: does not use Housing: apartment Current gender identity: male Do you feel safe at home: Yes Do you feel safe in your relationship?: Yes Additional Social history: 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 Meds Allergies and Home Medications Allergies Allergy/AdvReac Type Severity Reaction Status Date / Time thiopental [From Pentothal] Allergy Severe Paralysis Verified 11/04/22 08:07 Penicillins Allergy Intermediate Skin Rash Verified 11/04/22 08:07 succinylcholine AdvReac Severe Other (See Verified 11/04/22 08:07 Comment) Iodinated Contrast Media AdvReac Other (See Unverified 11/04/22 08:07 Comment) Home Medications Medication Instructions Recorded Confirmed Type finasteride 5 mg tablet 5 mg PO DAILY 07/24/20 11/04/22 History metformin 500 mg tablet 500 mg PO BID 07/24/20 11/04/22 History clindamycin phosphate 1 % lotion 1 applic topical PRN PRN 05/31/21 11/04/22 History diphenhydramine 25 2 tab PO PRN PRN 05/31/21 11/04/22 History mg-acetaminophen 500 mg tablet (Tylenol PM Extra Strength) losartan 25 mg tablet 25 mg PO DAILY 05/31/21 11/04/22 History lactobacillus combination no.9 4 4,000 mmu cells PO DAILY 07/24/21 11/04/22 History billion cell capsule (Adult 50 Plus Probiotic) acetaminophen 500 mg tablet 500 mg PO Q6H PRN 08/23/21 11/04/22 History (Acetaminophen Extra Strength) atovaquone 250 mg-proguanil 100 mg 1 tab PO DAILY 12/31/21 11/04/22 History tablet azithromycin 250 mg capsule mg PO 12/31/21 11/04/22 History tamsulosin 0.4 mg capsule (Flomax) 0.4 mg PO DAILY 05/06/22 11/04/22 History empagliflozin 10 mg tablet 10 mg PO DAILY 10/28/22 11/04/22 History (Jardiance) atorvastatin 80 mg tablet 80 mg PO DAILY 11/04/22 11/04/22 History clopidogrel 75 mg tablet 75 mg PO DAILY 11/04/22 11/04/22 History doxycycline monohydrate 100 mg 100 mg PO DAILY 11/04/22 11/04/22 History capsule hydrochlorothiazide 12.5 mg tablet 12.5 mg PO DAILY 11/04/22 11/04/22 History metoprolol succinate 50 mg 50 mg PO DAILY 11/04/22 11/04/22 History tablet,extended release 24 hr nitroglycerin 0.4 mg sublingual 0.4 mg sublingual ONCE 11/04/22 11/04/22 History tablet Exam Narrative Exam Narrative: General: Patient appears appropriate age, thin and darkly tanned, alert and oriented x3 and in no acute distress. HEENT: Normocephalic, eyes with pupils equal and reactive to light symmetrically, extraocular movement intact and sclera anicteric. Oropharynx with moist mucosa and good dentition with prominent canine teeth over his lower jaw. Neck: Supple without JVD. Lungs: Fair aeration clear to oscillation percussion. No focalizing rales or rhonchi. Back: Normal posture without CVA tenderness. Heart: Regular rate and rhythm with no appreciable murmur or gallop. Abdomen: Scaphoid contour, soft and nontender to palpation with no palpable hepatosplenomegaly. Genitalia/rectal: Exam deferred. Extremities: No clubbing, cyanosis or pitting edema. Peripheral pulses intact. Skin: Darkly tanned over sun exposed areas, otherwise normal color, warm and dry. Neuro: Cranial nerves II through XII gross intact, no focal motor deficits and no tremor. Psych: Normal affect and mood. No abnormal thought processes. Remote and recent memory intact. Results Imaging Imaging Studies: EXAM:? XR PORTABLE CHEST AP CLINICAL HISTORY:? chest pain TECHNIQUE:? 2D digital imaging was performed of the chest. One image was obtained.? An AP view was obtained. COMPARISON:? CR XR PORTABLE CHEST AP from 10/28/2022 FINDINGS: MEDIASTINUM: Normal.? HEART: Normal. PULMONARY VASCULATURE: Normal. LUNGS: Clear.? PLEURAL SPACE: No pleural effusion or pneumothorax. BONE:Within normal limits for the patient's age. OTHER FINDINGS:Normal.? IMPRESSION: No acute pulmonary findings. Labs 11/05/22 04:02 11/05/22 04:02 Labs: Laboratory Results - last 24 hr 11/04/22 11/04/22 11/04/22 18:10 18:10 18:10 WBC 8.32 RBC 4.87 Hgb 14.6 Hct 41.5 MCV 85 MCH 30.0 MCHC 35.2 RDW 12.8 Plt Count 194 MPV 9.1 Immature Gran % 0.2 Neutrophils % 68.6 Lymphocytes % 20.6 Monocytes % 8.7 Eosinophils % 1.4 Basophils % 0.5 Nucleated RBC % 0.0 Absolute Neutrophils 5.71 Absolute Lymphocytes 1.71 Absolute Monocytes 0.72 Absolute Eosinophils 0.12 Absolute Basophils 0.04 PT 11.9 H INR 1.2 H APTT 24.6 Sodium 135 L Potassium 3.8 Chloride 98 Carbon Dioxide 23.8 Anion Gap 13.2 H BUN 30 H Creatinine 2.1 H Est GFR (CKD-EPI 2020) 35.37 Glucose 170 H Calcium 9.7 Total Bilirubin 0.8 AST 18 ALT 25 Alkaline Phosphatase 120 H Troponin I 79 H* NT-Pro-B Natriuret Pep 121 Total Protein 7.9 Albumin 4.3 11/04/22 21:05 WBC RBC Hgb Hct MCV MCH MCHC RDW Plt Count MPV Immature Gran % Neutrophils % Lymphocytes % Monocytes % Eosinophils % Basophils % Nucleated RBC % Absolute Neutrophils Absolute Lymphocytes Absolute Monocytes Absolute Eosinophils Absolute Basophils PT INR APTT Sodium Potassium Chloride Carbon Dioxide Anion Gap BUN Creatinine Est GFR (CKD-EPI 2020) Glucose Calcium Total Bilirubin AST ALT Alkaline Phosphatase Troponin I 74 H* NT-Pro-B Natriuret Pep Total Protein Albumin Last Vital Signs Temp 36.8 C 11/04/22 18:02 Pulse 64 11/04/22 21:46 Resp 15 11/04/22 21:58 BP 131/88 11/04/22 21:46 Pulse Ox 88 L 11/04/22 18:02 Time Spent Time spent with Patient: >75 minutes Time was spent: preparing to see the patient(eg.review tests), obtaining and/or reviewing separately otained hiistory, ordering medications,tests, procedures, referring, communicating with other health patient care technician, indepentently interpreting results and care coordination
[2022-11-04] MEDS: Heparin in 0.45% NaCl 25,000 UNIT/250 ML BAG 8.5 UNIT IV (23:35)
[2022-11-04] MEDS: nitroGLYcerin 2% 1 INCH/1 GM PKT TP (23:58)
[2022-11-05] VITALS (46 sets, daily range): BP systolic 79–132; BP diastolic 50–86; PULSE 55–86; RESP 11–22; TEMP 36.7–36.9; O2SAT 95–100
[2022-11-05] MEDS: Acetaminophen 325 MG TAB PO ×2 (00:28→14:34)
[2022-11-05] MEDS: Pantoprazole 40 MG VIAL IVP (00:28)
[2022-11-05] MEDS: nitroGLYcerin 2% 1 INCH/1 GM PKT 2 GM TP ×4 (00:29→18:33)
--- NOTE | 2022-11-05 02:49 | ED.PROG_ITS ---
Date of service: 11/05/22 Time of Service: 02:49 Medical Decision Making Patient was signed out to me by my colleague Dr. Roberto Degroot. Please refer to his HPI, physical exam, assessment and plan. At time of signout we are awaiting repeat troponin and EKG. EKG does appear slightly flattened compared to prior. Repeat troponin has returned and is going down slightly at 74. Patient does have mild intermittent chest pain still. Discussed the case with [facility] Dr. Schmitz, at this time does recommend heparinization and admission with plan for transfer to [facility] tomorrow for further evaluation. Discussed the case with the hospitalist Dr. Khanna, he agrees with assessment and plan. I have extensively reviewed the treatment plan with the patient. I have addressed all patient concerns at this time. I have also discussed the plan with the admitting physician and they agree with the current assessment and plan and have agreed to assume responsibility for the patient. All parties demonstrate verbal understanding and agreement with our assessment and plan at this time. The documentation in this chart was dictated using [employer] dictation software. Please excuse any dictation errors. Critical Care Time Critical Care Time Critical Care Time: Yes Total Critical Care Time: 45 Attestation: Upon my evaluation, this patient had a high probability of imminent or life- threatening deterioration, which required my direct attention, intervention, and personal management. I have personally provided 45 minutes of critical care time exclusive of time spent on separately billable procedures. Time includes review of laboratory data, radiology results, discussion with consultants, and monitoring for potential decompensation. Interventions were performed as documented. Sign Out Sign Out Data: Sign Out Comment: recent STEMI with RCA stenting, chest pain for days worse this afternoon; pending two trop, reassessment of symptoms for dispo Last updated by Ray Baum MD at 11/04/22 19:24 Discharge Plan Disposition Patient Disposition: Admit to [facility] Condition: Improving Discharge Details Chief Complaint: Chest Pain Clinical Impression: Non-ST elevation IA (NSTEMI), Chest pain Admit Date/Time: 11/04/22 22:34 Admit Provider: Brendan Cole Attending Provider: Brendan Cole Primary Care Provider: Cayden Hopkins ED Provider: Александр Eason Discharge Data Discharge Date/Time-TO BE ENTERED AT DEPARTURE: 11/04/22 23:49
[2022-11-05 04:11] LABS: HCT 38.4 % (40.0-50.0); HGB 13.3 g/dL (13.5-17.5); MCHC 34.6 % (32.0-36.0); MCV 87 fL (80-95); Platelet Count 167 10^3/uL (130-400); RBC 4.43 10^6/uL (4.36-5.78); RDW 13.1 % (11.8-14.1); RDW-SD 40.4 fL; WBC 8.47 10^3/uL (4.4-10.8)
[2022-11-05 04:41] LABS: Troponin I 71 ng/L (<or=60)
[2022-11-05 04:42] LABS: ALT 22 U/L (16-63); AST 18 U/L (15-37); Albumin 3.7 g/dL (3.4-5.0); Alkaline Phosphatase 87 U/L (46-116); Anion Gap 12.6 mmol/L (3-11); BUN 31 mg/dL (7-18); Bilirubin, Total 0.7 mg/dL (0.2-1.0); CO2 22.4 mmol/L (21.0-32.0); CREATININE 2.1 mg/dL (0.70-1.30); Calcium 8.9 mg/dL (8.5-10.1); Chloride 100 mmol/L (98-107); Estimated GFR 35.37 (mL/min/1.73m2); Glucose 219 mg/dL (74-106); Potassium 3.6 mmol/L (3.5-5.1); Sodium 135 mmol/L (136-145); Total Protein 6.8 g/dL (6.4-8.2)
[2022-11-05] MEDS: Metoprolol 25 MG TAB PO ×2 (06:05→14:54)
[2022-11-05 06:46] LABS: Bilirubin Negative (Negative); Blood Trace-lysed (Negative); Clarity Clear (Clear); Glucose 500 mg/dL (Negative); Ketones Negative (Negative); Leukocyte Esterase Negative (Negative); Nitrite Negative (Negative); Urobilinogen 0.2 mg/dL (Up to 0.2); pH 5.5 (5-8)
[2022-11-05 06:58] LABS: Bacteria Negative HPF (Negative); C & S Indicated? No; Casts Negative LPF (Negative); Crystals Negative HPF (Negative); Epithelial Cells Rare HPF (Negative); Mucus Negative (Negative); RBC 0-2 HPF (0-2); WBC Negative HPF (0-5)
--- NOTE | 2022-11-05 08:15 | RT.EKG_ITS ---
APPROVED REPORT Exam: Resting ECG Reason for Exam: NSTEMI Patient Location: I HR:60 bpm ECG Measurements Heart Rate 60 AXIS FL 186 P 49 QRSd 92 QRS -4 QT 405 T 13 QTc 405 Conclusion Sinus rhythm...normal P axis, V-rate 50- 99 Low voltage, precordial leads...precordial leads <1.0mV Otherwise normal ECG
--- NOTE | 2022-11-05 08:18 | W.PM.PROGNOT ---
Date of Service Date of service: 11/05/22 Time of Service: 08:18 Assessment and Plan Assessment and plan (1) Non-ST elevation [place] (NSTEMI): Status: Acute Assessment and plan: Continue aspirin, Plavix, heparin, high-dose atorvastatin, metoprolol, and nitroglycerin paste. Transferred to [facility] to the cardiology service of Dr. Darwin Marsh when bed becomes available. I contacted the transfer center and he was excepted last night to Dr. Marsh service. Professional time spent interviewing and examining patient, discussion of goals of care with hospital team (care management, nursing and consulting professionals) was 30 minutes. (2) Stage III chronic kidney disease: Assessment and plan: Stable chronic kidney disease.BUN is 31 creatinine 2.1 which appears to be his baseline (3) Type 2 diabetes mellitus: Assessment and plan: Continue sliding-scale coverage Subjective Subjective Interval history since last seen: 62-year-old male non-smoker with a history of coronary artery disease recent STEMI status post PCI of his RCA, hypertension, hyperlipidemia, chronic kidney disease, diabetes mellitus who presents emergency department with increased fatigue difficulty sleeping and dyspnea. Did not have any chest pain or pressure into a present emergency department. States when he had the symptoms he called his cardiac rehab nurse who referred him to his capsule inspector and after reviewing his symptoms advised to come the emergency department. In the emergency department he was found to be in sinus rhythm with a left bundle branch block. Initially the ED provider thought that he met Sgarbossa's criteria for an acute myocardial infarction in the setting of left bundle branch block but when this was reviewed by [facility] [place] [place] cardiology they disagree they did not meet Sgarbossa criteria. Patient's discomfort was relieved with sublingual nitroglycerin and he was placed on nitroglycerin paste and started on a heparin drip. Patient had already been on aspirin and Plavix from his recent PCI. [facility] [place] [place] cardiology was consulted by the ED provider and the patient was excepted for transfer to [facility] [place] [place] pending bed availability. No beds were available last night so the patient was admitted to medical ICU for continued treatment heparin drip aspirin Plavix high-dose statins and beta-blockers. Patient is currently pain-free denies any dyspnea.Troponin last night was 79 and is coming down repeat levels are 74 and 71. Exam Narrative Exam Narrative: Mr. Taveras is alert oriented person place time circumstance no acute distress. Neck is supple no JVD JVD no carotid pulses lungs are clear to auscultation Heart is regular rate and and rhythm without murmur rub or gallop Abdomen soft nontender nondistended Extremities without peripheral cyanosis or edema normal pedal pulses Objective Last Vital Signs Temp 36.7 C 11/05/22 04:00 Pulse 55 L 11/05/22 06:01 Resp 15 11/05/22 06:01 BP 103/72 11/05/22 06:01 Pulse Ox 97 11/05/22 06:01 Laboratory Results - last 24 hr 11/04/22 11/04/22 11/04/22 18:10 18:10 18:10 WBC 8.32 RBC 4.87 Hgb 14.6 Hct 41.5 MCV 85 MCH 30.0 MCHC 35.2 RDW 12.8 Plt Count 194 MPV 9.1 Immature Gran % 0.2 Neutrophils % 68.6 Lymphocytes % 20.6 Monocytes % 8.7 Eosinophils % 1.4 Basophils % 0.5 Nucleated RBC % 0.0 Absolute Neutrophils 5.71 Absolute Lymphocytes 1.71 Absolute Monocytes 0.72 Absolute Eosinophils 0.12 Absolute Basophils 0.04 PT 11.9 H INR 1.2 H APTT 24.6 Sodium 135 L Potassium 3.8 Chloride 98 Carbon Dioxide 23.8 Anion Gap 13.2 H BUN 30 H Creatinine 2.1 H Est GFR (CKD-EPI 2020) 35.37 Glucose 170 H Calcium 9.7 Magnesium Total Bilirubin 0.8 AST 18 ALT 25 Alkaline Phosphatase 120 H Troponin I 79 H* NT-Pro-B Natriuret Pep 121 Total Protein 7.9 Albumin 4.3 Urine Color Urine Clarity Urine pH Ur Specific [place] Urine Protein Urine Ketones Urine Blood Urine Nitrite Urine Bilirubin Urine Urobilinogen Ur Leukocyte Esterase Urine RBC Urine WBC Ur Epithelial Cells Urine Crystals Urine Bacteria Urine Casts Urine Mucus Ur Culture Indicated? Urine Glucose 11/04/22 11/04/22 11/05/22 21:05 21:05 01:41 WBC RBC Hgb Hct MCV MCH MCHC RDW Plt Count MPV Immature Gran % Neutrophils % Lymphocytes % Monocytes % Eosinophils % Basophils % Nucleated RBC % Absolute Neutrophils Absolute Lymphocytes Absolute Monocytes Absolute Eosinophils Absolute Basophils PT INR APTT Sodium Potassium Chloride Carbon Dioxide Anion Gap BUN Creatinine Est GFR (CKD-EPI 2020) Glucose Calcium Magnesium 2.0 Total Bilirubin AST ALT Alkaline Phosphatase Troponin I 74 H* Cancelled NT-Pro-B Natriuret Pep Total Protein Albumin Urine Color Urine Clarity Urine pH Ur Specific [place] Urine Protein Urine Ketones Urine Blood Urine Nitrite Urine Bilirubin Urine Urobilinogen Ur Leukocyte Esterase Urine RBC Urine WBC Ur Epithelial Cells Urine Crystals Urine Bacteria Urine Casts Urine Mucus Ur Culture Indicated? Urine Glucose 11/05/22 11/05/22 11/05/22 04:02 04:02 04:02 WBC 8.47 RBC 4.43 Hgb 13.3 L Hct 38.4 L MCV 87 MCH 30.0 MCHC 34.6 RDW 13.1 Plt Count 167 MPV 9.0 Immature Gran % Neutrophils % Lymphocytes % Monocytes % Eosinophils % Basophils % Nucleated RBC % Absolute Neutrophils Absolute Lymphocytes Absolute Monocytes Absolute Eosinophils Absolute Basophils PT INR APTT Sodium 135 L Potassium 3.6 Chloride 100 Carbon Dioxide 22.4 Anion Gap 12.6 H BUN 31 H Creatinine 2.1 H Est GFR (CKD-EPI 2020) 35.37 Glucose 219 H Calcium 8.9 Magnesium 2.0 Total Bilirubin 0.7 AST 18 ALT 22 Alkaline Phosphatase 87 Troponin I 71 H* NT-Pro-B Natriuret Pep Total Protein 6.8 Albumin 3.7 Urine Color Urine Clarity Urine pH Ur Specific [place] Urine Protein Urine Ketones Urine Blood Urine Nitrite Urine Bilirubin Urine Urobilinogen Ur Leukocyte Esterase Urine RBC Urine WBC Ur Epithelial Cells Urine Crystals Urine Bacteria Urine Casts Urine Mucus Ur Culture Indicated? Urine Glucose 11/05/22 11/05/22 04:02 04:23 WBC RBC Hgb Hct MCV MCH MCHC RDW Plt Count MPV Immature Gran % Neutrophils % Lymphocytes % Monocytes % Eosinophils % Basophils % Nucleated RBC % Absolute Neutrophils Absolute Lymphocytes Absolute Monocytes Absolute Eosinophils Absolute Basophils PT INR APTT 52.0 H Sodium Potassium Chloride Carbon Dioxide Anion Gap BUN Creatinine Est GFR (CKD-EPI 2020) Glucose Calcium Magnesium Total Bilirubin AST ALT Alkaline Phosphatase Troponin I NT-Pro-B Natriuret Pep Total Protein Albumin Urine Color Yellow Urine Clarity Clear Urine pH 5.5 Ur Specific [place] 1.010 Urine Protein Negative Urine Ketones Negative Urine Blood Trace-lysed H Urine Nitrite Negative Urine Bilirubin Negative Urine Urobilinogen 0.2 Ur Leukocyte Esterase Negative Urine RBC 0-2 Urine WBC Negative Ur Epithelial Cells Rare Urine Crystals Negative Urine Bacteria Negative Urine Casts Negative Urine Mucus Negative Ur Culture Indicated? No Urine Glucose 500 H Time Spent with Patient Time Spent with Patient: 25-34 minutes Time was spent: preparing to see the patient(eg.review tests), ordering medications,tests, procedures, referring, communicating with other health live in caregiver (Discussed with Dr. Cole), indepentently interpreting results, counseling the patient and care coordination
--- NOTE | 2022-11-05 08:53 | PDOC.CMIN ---
Date of service: 11/05/22 Time of Service: 08:53 Care Management Initial Assmt Initial Assessment REASON FOR HOSPITALIZATION:: STEMI PREVIOUS FUNCTIONAL STATUS/SOCIAL/FAMILY SUPPORTS:: Terry rents a room in a single family home in [place], [place]. There are 2 other renters and the vendor management associate in the household. 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 He has 2 adult children; his son lives in [facility] and his daughter is in [place]. Terry has been quite ill fore the past few years and had been out of work a lot. He has only been with his current employer for about a year. He does not receive any community services, does not use any assistive devices and is independent at baseline CURRENT FUNCTIONAL STATUS:: Terry was sitting up in bed visiting with his sister Aydee when CM met with him. He was pleasant and interacted well with CM. Terry stated that he is waiting to [place] [facility] He shared that he was just there last week when he had an [place] and required a stent. Terry also informed CM that he has received excellent care at [facility] on both admissions. ADVANCE DIRECTIVES:: none on file Has patient been provided with info about the portal/API?: Yes Did the patient sign up for the portal?: Yes CODE STATUS:: Full Code INSURANCE COVERAGE / FINANCIAL ISSUES:: [place] out of state CURRENT HOME/COMMUNITY SERVICES/EQUIPMENT:: none PRIMARY CARE PHYSICIAN:: Cayden Hopkins POTENTIAL DISCHARGE NEEDS:: follow up appointments PATIENT/FAMILY EDUCATION NEEDS:: Review of discharge instructions, limitations, follow up plan, discuss Ask Me Three TRANSPORTATION:: [facility] coordinated by nursing supervisor color paste mixing PLAN:: Terry will be transferred to [facility] as soon as a bed is available. He had a STEMI a week ago with stenting and re-presented yesterday with chest pain and elevated troponins. CM will continue to support Terry and assess for discharge concerns. PFSH All Active Problems Non-ST elevation [place] (NSTEMI) (Acute) ST elevation (STEMI) myocardial infarction (Acute) Chest pain (Acute) Rotator cuff tear arthropathy of left shoulder (Acute) Pseudocholinesterase deficiency (Acute) Pain in right lower leg (Acute) Chronic skin ulcer (Acute) Medical History 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 Bursitis of left shoulder HTN (hypertension) Hx of Lyme disease Rupture of left proximal biceps tendon Stage III chronic kidney disease Tendinitis of long head of biceps brachii of left shoulder Type 2 diabetes mellitus Surgical History Hx of appendectomy Hx of shoulder surgery Social History Smoking/Tobacco Use Status: Never Smoking risk assessment performed?: Yes Alcohol Intake: current Alcohol Intake frequency: a few times a month Alcohol type: beer Substance use type: does not use Housing: apartment Current gender identity: male Do you feel safe at home: Yes Do you feel safe in your relationship?: Yes Additional Social history: 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
[2022-11-05] MEDS: Finasteride 5 MG TAB PO (09:31)
[2022-11-05] MEDS: Tamsulosin 0.4 MG CAPCR PO (09:31)
[2022-11-05] MEDS: Empaglifozin 10 MG TAB PO (09:31)
[2022-11-05] MEDS: Clopidogrel 75 MG TAB PO (09:31)
[2022-11-05] MEDS: Losartan 25 MG TAB PO (09:31)
[2022-11-05] MEDS: Aspirin 81 MG CHEW CH (09:31)
[2022-11-05 11:26] LABS: PTT Activated 43.4 sec (21.5-31.9)
--- NOTE | 2022-11-05 12:26 | DSE_ITS ---
Date of service: 11/05/22 Time of Service: 12:27 DS: Diagnosis Discharge Diagnosis (1) Non-ST elevation [place] (NSTEMI): Status: Acute (2) Stage III chronic kidney disease: (3) Type 2 diabetes mellitus: Discharge Plan Disposition Specific Acute Inpt Facility: [facility] Condition: Improving Condition: Serious Discharge Details Reason For Visit: Chest Pain, STEMI, CKD, NIDDM Admit Date/Time: 11/04/22 22:34 Admit Provider: Brendan Cole Attending Provider: Brendan Cole Primary Care Provider: Cayden Hopkins Hospital Course Hospital Course: 62-year-old male non-smoker history of coronary artery disease recent STEMI underwent PCI of his RCA within the last week. He has hypertension hyperlipidemia chronic kidney disease and diabetes mellitus. He presents emergency department with increasing fatigue difficulty sleeping and dyspnea. No chest tightness pain or pressure. The patient called his cardiac rehab nurse to tell her about his symptoms he was referred to his dryerman/woman who advised him to present to emergency department. Initial EKG showed sinus rhythm no acute ST elevation or depression. Repeat EKG was obtained while in the emergency department taken a couple hours later and still showed normal sinus rhythm with no acute changes. Nevertheless the patient had a mild bump in his troponins initial troponin was 79 and repeat levels were 74 and 71. He is currently free of any chest pain or pressure has been treated with nitroglycerin paste heparin drip and is on dual antiplatelet therapy along with high-dose statins. Atorvastatin 80 mg daily. Our ED provider Dr. Eliazar Eason spoke with [facility] cardiology Dr. Schmitz who agreed to accept the patient on behalf of Dr. Darwin Marsh. As they had no bed availability patient was admitted to our intensive care unit where he was continued treatment with heparin drip. Patient remains pain-free at the present time and repeat troponins have plateaued and remain unchanged in the 70s. Repeat ECG was done this morning and still shows normal sinus rhythm with no acute ST elevation or depression. Patient tells me that he had another stenosis that they did not perform PCI on out of concerns for excess contrast potentially worsening his chronic kidney disease. I expect patient will have a repeat cardiac catheterization with new PCI being performed. Patient remains hemodynamically stable. Home Meds and New Rx's Prescriptions: No Action tamsulosin [Flomax] 0.4 mg capsule 0.4 mg PO DAILY atorvastatin 80 mg tablet 80 mg PO DAILY clopidogrel 75 mg tablet 75 mg PO DAILY doxycycline monohydrate 100 mg capsule 100 mg PO DAILY hydrochlorothiazide 12.5 mg tablet 12.5 mg PO DAILY metoprolol succinate 50 mg tablet extended release 24 hr 50 mg PO DAILY nitroglycerin 0.4 mg tablet, sublingual 0.4 mg sublingual ONCE Rx Instructions: as a single dose; administer 5-10 minutes before situation known to precipitate angina attack Adult 50 Plus Probiotic 4 billion cell capsule 4,000 mmu cells PO DAILY Rx Instructions: administer with a meal azithromycin 250 mg capsule PO Patient Comments: not taking at the moment 10/28/22 atovaquone-proguanil 250-100 mg tablet 1 tab PO DAILY Patient Comments: not taking at the moment 10/28/22 Rx Instructions: must administer with food, preferably a high-fat meal losartan 25 mg Tablet 25 mg PO DAILY clindamycin phosphate 1 % lotion 1 applic topical PRN PRN diphenhydramine-acetaminophen [Tylenol PM Extra Strength] 25-500 mg Tablet 2 tab PO PRN PRN Jardiance 10 mg tablet 10 mg PO DAILY Patient Comments: TAKE 1 TABLET BY MOUTH ONCE DAILY metformin 500 mg Tablet 500 mg PO BID finasteride 5 mg Tablet 5 mg PO DAILY acetaminophen [Acetaminophen Extra Strength] 500 mg Tablet 500 mg PO Q6H PRN Discharge Instructions Instructions: Heart Attack (DC) Activity:: Bedrest Equipment/Supplies:: No Equipment Needed Diet:: Carb Counting DS: Summary Time Spent with Patient providing and/or coordinating discharge services: Greater than 30 minutes Specific discharge activities: Interview/exam of patient, educating patient and/or family about need for transfer and alternative treatment options, coordination of transfer w/ receiving facility and discussion of case w/ accepting provider(s), completion of transfer orders and discharge summary Status at Discharge Functional status at discharge: independent ambulation Overall status at discharge: patient is not back to baseline Mental Status: mental status grossly normal Speech and Movement: speech and movement normal Mood: congruent mood Affect: normal affect Quality: AMI Clinical Trial Participant: No Exam Narrative Exam Narrative: Mr. Taveras is alert oriented person place time circumstance no acute distress. Neck is supple no JVD JVD no carotid pulses lungs are clear to auscultation Heart is regular rate and and rhythm without murmur rub or gallop Abdomen soft nontender nondistended Extremities without peripheral cyanosis or edema normal pedal pulses Psych Mental Status: mental status grossly normal Speech and Movement: speech and movement normal Mood: congruent mood Affect: normal affect DS: Data Vitals/I&O Vitals and I&O: Vital Signs Temperature 36.9 C 11/05/22 08:00 Temperature Source Temporal Artery Scan 11/05/22 08:00 Pulse 63 11/05/22 11:01 Pulse 67 11/05/22 11:01 Respiratory Rate 16 11/05/22 11:01 Respiratory Effort Normal, Non-Labored 11/05/22 08:00 Respiratory Depth Normal 11/05/22 08:00 Respiratory Pattern Normal 11/05/22 08:00 Blood Pressure 105/70 11/05/22 11:01 Blood Pressure Mean 78 11/05/22 11:01 Blood Pressure Position Supine 11/05/22 08:00 Pulse Oximetry 97 11/05/22 11:01 Oxygen Delivery Method Room Air 11/05/22 08:00 Oxygen Flow Rate 0 11/05/22 08:00 Pain Level 0 11/05/22 08:00 Intake & Output 11/04/22 11/05/22 11/05/22 23:59 11:59 23:59 Intake Total 85.566 / 85.566 Output Total 400 / 400 Balance -314.434 / -314.434 Weight 71.8 kg Intake: IV 85.566 / 85.566 Output: Urine 400 / 400 Other: Urine Color Pale Yellow Urine Appearance Clear Urine Odor None Data Completed and Pending Labs on day of discharge: Labs from last 24 hours 11/05/22 11/05/22 11/05/22 10:55 04:23 04:02 WBC RBC Hgb Hct MCV MCH MCHC RDW Plt Count MPV Immature Gran % Neutrophils % Lymphocytes % Monocytes % Eosinophils % Basophils % Nucleated RBC % Absolute Neutrophils Absolute Lymphocytes Absolute Monocytes Absolute Eosinophils Absolute Basophils PT INR APTT 43.4 H 52.0 H Sodium Potassium Chloride Carbon Dioxide Anion Gap BUN Creatinine Est GFR (CKD-EPI 2020) Glucose Calcium Magnesium Total Bilirubin AST ALT Alkaline Phosphatase Troponin I NT-Pro-B Natriuret Pep Total Protein Albumin Urine Color Yellow Urine Clarity Clear Urine pH 5.5 Ur Specific [place] 1.010 Urine Protein Negative Urine Ketones Negative Urine Blood Trace-lysed H Urine Nitrite Negative Urine Bilirubin Negative Urine Urobilinogen 0.2 Ur Leukocyte Esterase Negative Urine RBC 0-2 Urine WBC Negative Ur Epithelial Cells Rare Urine Crystals Negative Urine Bacteria Negative Urine Casts Negative Urine Mucus Negative Ur Culture Indicated? No Urine Glucose 500 H 11/05/22 11/05/22 11/05/22 04:02 04:02 04:02 WBC 8.47 RBC 4.43 Hgb 13.3 L Hct 38.4 L MCV 87 MCH 30.0 MCHC 34.6 RDW 13.1 Plt Count 167 MPV 9.0 Immature Gran % Neutrophils % Lymphocytes % Monocytes % Eosinophils % Basophils % Nucleated RBC % Absolute Neutrophils Absolute Lymphocytes Absolute Monocytes Absolute Eosinophils Absolute Basophils PT INR APTT Sodium 135 L Potassium 3.6 Chloride 100 Carbon Dioxide 22.4 Anion Gap 12.6 H BUN 31 H Creatinine 2.1 H Est GFR (CKD-EPI 2020) 35.37 Glucose 219 H Calcium 8.9 Magnesium 2.0 Total Bilirubin 0.7 AST 18 ALT 22 Alkaline Phosphatase 87 Troponin I 71 H* NT-Pro-B Natriuret Pep Total Protein 6.8 Albumin 3.7 Urine Color Urine Clarity Urine pH Ur Specific [place] Urine Protein Urine Ketones Urine Blood Urine Nitrite Urine Bilirubin Urine Urobilinogen Ur Leukocyte Esterase Urine RBC Urine WBC Ur Epithelial Cells Urine Crystals Urine Bacteria Urine Casts Urine Mucus Ur Culture Indicated? Urine Glucose 11/05/22 11/04/22 11/04/22 01:41 21:05 21:05 WBC RBC Hgb Hct MCV MCH MCHC RDW Plt Count MPV Immature Gran % Neutrophils % Lymphocytes % Monocytes % Eosinophils % Basophils % Nucleated RBC % Absolute Neutrophils Absolute Lymphocytes Absolute Monocytes Absolute Eosinophils Absolute Basophils PT INR APTT Sodium Potassium Chloride Carbon Dioxide Anion Gap BUN Creatinine Est GFR (CKD-EPI 2020) Glucose Calcium Magnesium 2.0 Total Bilirubin AST ALT Alkaline Phosphatase Troponin I Cancelled 74 H* NT-Pro-B Natriuret Pep Total Protein Albumin Urine Color Urine Clarity Urine pH Ur Specific [place] Urine Protein Urine Ketones Urine Blood Urine Nitrite Urine Bilirubin Urine Urobilinogen Ur Leukocyte Esterase Urine RBC Urine WBC Ur Epithelial Cells Urine Crystals Urine Bacteria Urine Casts Urine Mucus Ur Culture Indicated? Urine Glucose 11/04/22 11/04/22 11/04/22 18:10 18:10 18:10 WBC 8.32 RBC 4.87 Hgb 14.6 Hct 41.5 MCV 85 MCH 30.0 MCHC 35.2 RDW 12.8 Plt Count 194 MPV 9.1 Immature Gran % 0.2 Neutrophils % 68.6 Lymphocytes % 20.6 Monocytes % 8.7 Eosinophils % 1.4 Basophils % 0.5 Nucleated RBC % 0.0 Absolute Neutrophils 5.71 Absolute Lymphocytes 1.71 Absolute Monocytes 0.72 Absolute Eosinophils 0.12 Absolute Basophils 0.04 PT 11.9 H INR 1.2 H APTT 24.6 Sodium 135 L Potassium 3.8 Chloride 98 Carbon Dioxide 23.8 Anion Gap 13.2 H BUN 30 H Creatinine 2.1 H Est GFR (CKD-EPI 2020) 35.37 Glucose 170 H Calcium 9.7 Magnesium Total Bilirubin 0.8 AST 18 ALT 25 Alkaline Phosphatase 120 H Troponin I 79 H* NT-Pro-B Natriuret Pep 121 Total Protein 7.9 Albumin 4.3 Urine Color Urine Clarity Urine pH Ur Specific [place] Urine Protein Urine Ketones Urine Blood Urine Nitrite Urine Bilirubin Urine Urobilinogen Ur Leukocyte Esterase Urine RBC Urine WBC Ur Epithelial Cells Urine Crystals Urine Bacteria Urine Casts Urine Mucus Ur Culture Indicated? Urine Glucose PFSH All Active Problems Non-ST elevation [place] (NSTEMI) (Acute) ST elevation (STEMI) myocardial infarction (Acute) Chest pain (Acute) Rotator cuff tear arthropathy of left shoulder (Acute) Pseudocholinesterase deficiency (Acute) Pain in right lower leg (Acute) Chronic skin ulcer (Acute) Medical History 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 Bursitis of left shoulder HTN (hypertension) Hx of Lyme disease Rupture of left proximal biceps tendon Stage III chronic kidney disease Tendinitis of long head of biceps brachii of left shoulder Type 2 diabetes mellitus Surgical History Hx of appendectomy Hx of shoulder surgery Social History Smoking/Tobacco Use Status: Never Smoking risk assessment performed?: Yes Alcohol Intake: current Alcohol Intake frequency: a few times a month Alcohol type: beer Substance use type: does not use Housing: apartment Current gender identity: male Do you feel safe at home: Yes Do you feel safe in your relationship?: Yes Additional Social history: 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 Time Spent with Patient Time Spent with Patient: <45 minutes Time was spent: preparing to see the patient(eg.review tests), obtaining and/or reviewing separately otained hiistory, ordering medications,tests, procedures, referring, communicating with other health child care center assistant director ([facility]), indepentently interpreting results, counseling the patient (And patient's sister) and care coordination
--- NOTE | 2022-11-05 13:27 | NUR.NOTE ---
Accessed chart to determine orders for EKG and to determine whether or not one needs to be cancelled. Nursing Note:
[2022-11-05] MEDS: Normal Saline 1,000 ML 80 ML IV (14:36)
[2022-11-05] MEDS: nitroGLYcerin 0.4 MG TAB SL (14:54)
[2022-11-05] MEDS: Mylanta Suspension 30 ML CUP PO (14:54)
[2022-11-05] MEDS: Normal Saline 250 ML IV (16:30)
--- NOTE | 2022-11-05 16:30 | RT.EKG_ITS ---
APPROVED REPORT Exam: Resting ECG Reason for Exam: chest pain, elevated troponin Patient Location: I HR:65 bpm ECG Measurements Heart Rate 65 AXIS DE 180 P 49 QRSd 96 QRS 6 QT 366 T 22 QTc 381 Conclusion Sinus rhythm...normal P axis, V-rate 50- 99 Normal Electrocardiogram
[2022-11-05 17:14] LABS: Troponin I < 50 ng/L (<or=60)
[2022-11-05 19:26] LABS: PTT Activated 74.5 sec (21.5-31.9)
[2022-11-05] MEDS: Heparin in 0.45% NaCl 25,000 UNIT/250 ML BAG 11 UNIT IV (19:36)
== END 2022-11-05 20:15 | disposition short-term general hospital (02) | DRG 281 ==
LOC: ER 23:40 → ICU 23:48
PROVIDERS: Emergency Medicine; Internal Medicine; Admitting Provider Family Medicine; Emergency Provider Student in an Organized Health Care Education/Training Program; PCP Physician Assistant; Visit Provider Family Medicine
DX: I21.3 ST elevation (STEMI) myocardial infarction of unspecified site (principal); D68.2 Hereditary deficiency of other clotting factors; N18.30 Chronic kidney disease, stage 3 unspecified; I21.4 Non-ST elevation (NSTEMI) myocardial infarction; E11.22 Type 2 diabetes mellitus with diabetic chronic kidney disease; Z95.5 Presence of coronary angioplasty implant and graft; I25.10 Atherosclerotic heart disease of native coronary artery without angina pectoris; E88.09 Other disorders of plasma-protein metabolism, not elsewhere classified; M75.22 Bicipital tendinitis, left shoulder; E78.5 Hyperlipidemia, unspecified; I12.9 Hypertensive chronic kidney disease with stage 1 through stage 4 chronic kidney disease, or unspecified chronic kidney disease; Z79.84 Long term (current) use of oral hypoglycemic drugs
CPT/HCPCS: 36415; 80053; 85027; 93005; 99291; 71045; 81003; 81015; 83735; 83880; 84484; 85025; 85610; 85730; 93010; 99223; 99232; 99239

== ENCOUNTER 2022-11-24 08:45 | Outpatient (CLI) | payer BC, MEDICAID, SELFPAY ==
[2022-11-24 09:48] LABS: Anion Gap 8.9 mmol/L (3-11); BUN 26 mg/dL (7-18); CO2 25.1 mmol/L (21.0-32.0); CREATININE 2.1 mg/dL (0.70-1.30); Calcium 9.5 mg/dL (8.5-10.1); Chloride 99 mmol/L (98-107); Estimated GFR 35.37 (mL/min/1.73m2); PHOSPHORUS 2.1 mg/dL (2.6-4.7); Sodium 133 mmol/L (136-145)
== END 2022-11-24 08:46 | disposition home or self-care (01) ==
LOC: LBO 08:45
PROVIDERS: PCP Physician Assistant; Visit Provider Internal Medicine
DX: N18.32 Chronic kidney disease, stage 3b (principal); E83.9 Disorder of mineral metabolism, unspecified; I10 Essential (primary) hypertension; M89.9 Disorder of bone, unspecified; Z79.899 Other long term (current) drug therapy
CPT/HCPCS: 36415; 80051; 84520; 82040; 82310; 82565; 84100

== ENCOUNTER 2022-12-12 08:29 | Outpatient (RCR) | payer BC, MEDICAID, SELFPAY | END 2022-12-13 23:59 | disposition home or self-care (01) | LOC: CR 08:29 | PROVIDERS: PCP Physician Assistant; Visit Provider Internal Medicine Cardiovascular Disease | DX: I25.2 Old myocardial infarction (principal); Z95.5 Presence of coronary angioplasty implant and graft; Z51.89 Encounter for other specified aftercare | CPT/HCPCS: S9472 ==

== ENCOUNTER 2022-12-26 16:43 | Outpatient (REF) | payer BC, SELFPAY ==
[2022-12-26 17:51] LABS: Abs Immature Grans 0.03 10^3/uL (0.0-0.06); Absolute Basophil Count 0.06 10^3/uL (0.0-0.2); Absolute Eosinophil Count 0.32 10^3/uL (0.0-0.7); Absolute Lymphocyte Count 0.89 10^3/uL (1.2-3.4); Absolute Monocyte Count 0.79 10^3/uL (0.1-0.8); Absolute Neutrophil Count 5.32 10^3/uL (1.2-6.7); Basophils % 0.8; Eosinophils % 4.3; HCT 38.5 % (40.0-50.0); HGB 13.4 g/dL (13.5-17.5); Immature Grans % 0.4; MCH 29.6 pg (27.0-33.0); MCHC 34.8 % (32.0-36.0); MCV 85 fL (80-95); MPV 8.9 fL (8.0-11.0); Monocytes % 10.7; Neutrophils % 71.8; Platelet Count 163 10^3/uL (130-400); RBC 4.52 10^6/uL (4.36-5.78); RDW 13.3 % (11.8-14.1); RDW-SD 41.1 fL; WBC 7.41 10^3/uL (4.4-10.8)
[2022-12-31 14:06] LABS: ESR (LRH) 10 mm/hr
== END 2022-12-26 16:44 | disposition home or self-care (01) ==
LOC: NCHCN 16:43
PROVIDERS: PCP Physician Assistant; Visit Provider Family Medicine
DX: R07.89 Other chest pain (principal)
CPT/HCPCS: 85652; 85025; 86140

== ENCOUNTER 2023-01-09 08:00 | Outpatient (RCR) | payer BC, MEDICAID, SELFPAY | END 2023-01-13 23:59 | disposition home or self-care (01) | LOC: CR 08:00 | PROVIDERS: PCP Physician Assistant; Visit Provider Internal Medicine Cardiovascular Disease | DX: I25.10 Atherosclerotic heart disease of native coronary artery without angina pectoris (principal); Z95.5 Presence of coronary angioplasty implant and graft; Z51.89 Encounter for other specified aftercare | CPT/HCPCS: S9472 ==

== ENCOUNTER 2023-04-14 16:21 | Outpatient (REF) | payer BC, SELFPAY ==
[2023-04-14 16:08] LABS: Hemoglobin A1C 7.3 % (<5.7)
== END 2023-04-14 16:22 | disposition home or self-care (01) ==
LOC: NCHCN 16:21
PROVIDERS: PCP Physician Assistant; Visit Provider Physician Assistant
DX: E11.9 Type 2 diabetes mellitus without complications (principal)
CPT/HCPCS: 83036

== ENCOUNTER 2023-10-07 08:51 | Outpatient (REF) | payer BC, SELFPAY ==
[2023-10-07 16:23] LABS: HCT 40.4 % (40.0-50.0); HGB 13.1 g/dL (13.5-17.5); MCH 27.2 pg (27.0-33.0); MCHC 32.4 % (32.0-36.0); MCV 84 fL (80-95); MPV 9.5 fL (8.0-11.0); Platelet Count 167 10^3/uL (130-400); RBC 4.81 10^6/uL (4.36-5.78); RDW-SD 42.6 fL; WBC 5.34 10^3/uL (4.4-10.8)
[2023-10-07 16:53] LABS: ALT 32 U/L (16-63); AST 19 U/L (15-37); Albumin 4.5 g/dL (3.4-5.0); Alkaline Phosphatase 91 U/L (46-116); Anion Gap 9.2 mmol/L (3-11); BUN 21 mg/dL (7-18); Bilirubin, Total 0.58 mg/dL (0.2-1.0); CO2 28.8 mmol/L (21.0-32.0); CREATININE 1.9 mg/dL (0.70-1.30); Calcium 9.6 mg/dL (8.5-10.1); Calculated LDL 51 mg/dL (<100); Chloride 106 mmol/L (98-107); Cholesterol 129 mg/dL (<200); Estimated GFR 39.64 (mL/min/1.73m2); Glucose 155 mg/dL (74-106); HDL Cholesterol 42 mg/dL (40-60); Potassium 4.6 mmol/L (3.5-5.1); Sodium 144 mmol/L (136-145); Total Protein 7.4 g/dL (6.4-8.2); Triglyceride 183 mg/dL (<150)
[2023-10-07 17:05] LABS: COMMENT (LAB VIEW ONLY) 118.39 mg/dL; Microalb ug/mg Crea 10.7 ug/mg Cr
[2023-10-07 17:23] LABS: Hemoglobin A1C 8.1 % (<5.7)
== END 2023-10-07 08:52 | disposition home or self-care (01) ==
LOC: NCHCN 08:51
PROVIDERS: PCP Physician Assistant; Visit Provider Physician Assistant
DX: E11.9 Type 2 diabetes mellitus without complications (principal); D64.9 Anemia, unspecified
CPT/HCPCS: 80053; 80061; 85027; 82043; 82570; 83036

== ENCOUNTER 2023-12-14 03:08 | Outpatient (CLI) | payer BC, SELFPAY ==
[2023-12-14 12:38] LABS: Bilirubin Negative (Negative); Blood Trace-intact (Negative); Clarity Clear (Clear); Glucose >=1000 mg/dL (Negative); Ketones Negative (Negative); Leukocyte Esterase Negative (Negative); Nitrite Negative (Negative); Urobilinogen 0.2 mg/dL (Up to 0.2); pH 5.5 (5-8)
[2023-12-14 12:55] LABS: Abs Immature Grans 0.01 10^3/uL (0.0-0.06); Absolute Basophil Count 0.05 10^3/uL (0.0-0.2); Absolute Eosinophil Count 0.18 10^3/uL (0.0-0.7); Absolute Lymphocyte Count 1.14 10^3/uL (1.2-3.4); Absolute Monocyte Count 0.51 10^3/uL (0.1-0.8); Absolute Neutrophil Count 3.29 10^3/uL (1.2-6.7); Eosinophils % 3.5 %; HCT 39.8 % (40.0-50.0); HGB 12.8 g/dL (13.5-17.5); Immature Grans % 0.2 %; MCH 27.4 pg (27.0-33.0); MCHC 32.2 % (32.0-36.0); MCV 85 fL (80-95); MPV 9.4 fL (8.0-11.0); Monocytes % 9.8 %; Neutrophils % 63.5 %; Platelet Count 153 10^3/uL (130-400); RBC 4.68 10^6/uL (4.36-5.78); RDW 14.3 % (11.8-14.1); RDW-SD 44.3 fL; WBC 5.18 10^3/uL (4.4-10.8)
[2023-12-14 13:17] LABS: COMMENT (LAB VIEW ONLY) 33.88 mg/dL; Microalb ug/mg Crea 14.8 ug/mg Cr
[2023-12-14 13:28] LABS: Bacteria Rare HPF (Negative); C & S Indicated? No; Crystals Negative HPF (Negative); Epithelial Cells Negative HPF (Negative); Mucus Negative (Negative); RBC 0-2 HPF (0-2); WBC Negative HPF (0-5)
[2023-12-14 17:06] LABS: Albumin 4.1 g/dL (3.4-5.0); Anion Gap 9.2 mmol/L (3-11); BUN 26 mg/dL (7-18); CO2 26.8 mmol/L (21.0-32.0); CREATININE 2.1 mg/dL (0.70-1.30); Calcium 9.1 mg/dL (8.5-10.1); Chloride 99 mmol/L (98-107); Estimated GFR 35.15 (mL/min/1.73m2); PHOSPHORUS 3.8 mg/dL (2.6-4.7); Potassium 4.2 mmol/L (3.5-5.1); Sodium 135 mmol/L (136-145)
[2023-12-15 18:52] LABS: Parathyroid Hormone,Intact 69 pg/mL (19-88)
== END 2023-12-14 03:09 | disposition home or self-care (01) ==
LOC: LBO 03:08
PROVIDERS: PCP Physician Assistant; Visit Provider Internal Medicine
DX: N18.32 Chronic kidney disease, stage 3b (principal); N18.9 Chronic kidney disease, unspecified; E83.9 Disorder of mineral metabolism, unspecified; M89.9 Disorder of bone, unspecified; I10 Essential (primary) hypertension; Z79.899 Other long term (current) drug therapy; R80.9 Proteinuria, unspecified; R31.29 Other microscopic hematuria; E08.22 Diabetes mellitus due to underlying condition with diabetic chronic kidney disease
CPT/HCPCS: 36415; 80051; 84520; 81003; 81015; 82040; 82043; 82310; 82565; 82570; 83970; 84100; 85025

== ENCOUNTER 2024-04-25 10:24 | Emergency (ER) | payer BC, SELFPAY ==
[2024-04-25] VITALS (47 sets, daily range): BP systolic 113–170; BP diastolic 86–97; PULSE 55–84; RESP 9–25; TEMP 36.4–36.6; O2SAT 96–100
--- NOTE | 2024-04-25 10:15 | RT.EKG_ITS ---
APPROVED REPORT Exam: Resting ECG Reason for Exam: chest pain Patient Location: E HR:57 bpm ECG Measurements Heart Rate 57 AXIS PA 196 P 81 QRSd 87 QRS 70 QT 400 T 73 QTc 389 Conclusion Sinus rhythm...normal P axis, V-rate 50- 99 No STEMI
[2024-04-25 10:59] LABS: Abs Immature Grans 0.01 10^3/uL (0.0-0.06); Absolute Basophil Count 0.04 10^3/uL (0.0-0.2); Absolute Eosinophil Count 0.16 10^3/uL (0.0-0.7); Absolute Lymphocyte Count 1.17 10^3/uL (1.2-3.4); Absolute Monocyte Count 0.62 10^3/uL (0.1-0.8); Absolute Neutrophil Count 3.32 10^3/uL (1.2-6.7); Basophils % 0.8 %; HCT 39.5 % (40.0-50.0); HGB 12.6 g/dL (13.5-17.5); Immature Grans % 0.2 %; MCH 27.4 pg (27.0-33.0); MCHC 31.9 % (32.0-36.0); MCV 86 fL (80-95); MPV 9.2 fL (8.0-11.0); Monocytes % 11.7 %; Neutrophils % 62.3 %; Platelet Count 159 10^3/uL (130-400); RDW 13.5 % (11.8-14.1); RDW-SD 42.3 fL; WBC 5.32 10^3/uL (4.4-10.8)
--- NOTE | 2024-04-25 11:14 | W.ED.GENAD ---
Discharge Plan Disposition Patient Disposition: Home Discharge Details Clinical Impression: Chest pain Primary Care Provider: Cayden Hopkins ED Provider: Hoda Banegas Home Meds and New Rx's Prescriptions: No Action atorvastatin 80 mg tablet 80 mg PO DAILY clopidogrel 75 mg tablet 75 mg PO DAILY doxycycline monohydrate 100 mg capsule 100 mg PO BID metoprolol succinate 50 mg tablet extended release 24 hr 50 mg PO DAILY nitroglycerin 0.4 mg tablet, sublingual 0.4 mg sublingual ONCE Rx Instructions: as a single dose; administer 5-10 minutes before situation known to precipitate angina attack Adult 50 Plus Probiotic 4 billion cell capsule 4,000 mmu cells PO DAILY Rx Instructions: administer with a meal losartan 25 mg Tablet 25 mg PO DAILY diphenhydramine-acetaminophen [Tylenol PM Extra Strength] 25-500 mg Tablet 2 tab PO PRN PRN Jardiance 10 mg tablet 10 mg PO DAILY Patient Comments: TAKE 1 TABLET BY MOUTH ONCE DAILY Ozempic 0.25 mg or 0.5 mg(2 mg/1.5 mL) pen injector 0.5 mg subcut QWEEK metformin 500 mg Tablet 500 mg PO DAILY finasteride 5 mg Tablet 5 mg PO DAILY Discharge Instructions Additional Instructions: Please call Cayden Hopkins's office first thing in the morning to schedule follow-up appointment within the next week or so. Further outpatient cardiac evaluation is recommended; this may include stress test or echo depending on what your provider feels is best. Follow-up as scheduled with your websphere commerce consultant. Your cardiac workup today was reassuring. You had good improvement of your symptoms with a GI cocktail containing lidocaine and Mylanta. You may wish to use [id number] famotidine/Pepcid for heartburn and Mylanta as needed if you develop new episodes of heartburn. Return to emergency care if you develop new chest pains, dizziness, difficulty breathing, episodes of passing out, weakness, or if you are very worried and need to be rechecked again immediately. Referrals: Cayden Hopkins [Primary Care Provider] - [facility] General Date/Time Provider Initiated Documentation: 04/25/24 10:40. HPI Narrative: Terry is a 63 year old male who presents to the emergency department today for evaluation of fatigue, headache, and lightheadedness. He reports that he has had episodes of fatigue on and off for the last couple of weeks. It comes out of nowhere, is not accompanied by any other symptoms. He has noticed that oftentimes improves when he eats, but has not checked his blood sugar. This morning he woke up with extreme fatigue. Half an hour prior to arriving to the emergency department he developed an allover headache accompanied by lightheadedness, dizziness when sitting up. He denies recent fever/chills, congestion, sore throat, cough, chest pain, shortness of breath, nausea/vomiting, abdominal pain, change in bowel or bladder function, pedal edema. He did have an episode of left arm discomfort after moving totes a week ago, this resolved the next day when he woke up. This was not accompanied by diaphoresis, shortness of breath, chest pain, or other symptoms. One week ago hit his head, no LOC. Past medical history is significant for lyme disease, for which he is being treated. He has had CT in the past requiring 2 stents; has T2DM. Physical exam reassuring. Terry is alert and oriented, no acute distress. Easy work of breathing, lung sounds clear bilaterally. Normal heart sounds. PERRL, EOMs intact. Normal [id number]; 5/5 muscle strength upper and lower extremities. Sensation grossly intact upper and lower extremities. As patient had significant dizziness with sitting up, standing neuro exam deferred at arrival; a full neuro exam was performed after resolution of symptoms- normal [id number], rapid alternating movements, Romberg, tandem gait. Vital signs overall unremarkable. No pedal edema D/dx includes but is not limited to: ACS, cardiac arrhythmia, hypoglycemia, electrolyte imbalance, DKA/HHS, intracranial hemorrhage (less likely based on timeline of symptoms from head injury). I independently interpreted the following tests: CBC shows anemia unchanged from baseline. CMP reassuring, no change in kidney function from baseline, BNP, serial troponins all reassuring. COVID/flu/RSV negative. Chest x-ray unremarkable, no obvious infiltrates or cardiomegaly noted. EKG unremarkable, normal sinus rhythm, rate 57, no changes consistent with acute ischemia, normal intervals. 1300: Terry developed new sternal chest pain, given nitroglycerin with no improvement of symptoms. EKG performed, no change from previous, normal sinus rhythm with rate 68, no changes consistent with acute ischemia, normal intervals. He did have full resolution of symptoms after having GI cocktail. He reports that he no longer has any dizziness, shortness of breath, HDZ, or chest discomfort. Head CT cancelled. Overall cardiac workup today very reassuring. Unclear etiology of sternal chest discomfort with other symptoms, however full resolution with GI cocktail may indicate GI etiology. As patient does have significant cardiac history, recommend close follow-up with PCP and further outpatient evaluation, including echo or stress test as indicated. He reports that he does have a cardiology appointment scheduled. Reviewed discharge instructions with patient, including symptomatic management and red flags indicating need for return to emergency care Related Data Home Medications ?Medication ?Instructions ?Recorded ?Confirmed finasteride 5 mg tablet 5 mg PO DAILY 07/24/20 04/25/24 metformin 500 mg tablet 500 mg PO DAILY 07/24/20 04/25/24 diphenhydramine 25 2 tab PO PRN PRN 05/31/21 04/25/24 mg-acetaminophen 500 mg tablet (Tylenol PM Extra Strength) losartan 25 mg tablet 25 mg PO DAILY 05/31/21 04/25/24 lactobacillus combination no.9 4 4,000 mmu cells PO DAILY 07/24/21 04/25/24 billion cell capsule (Adult 50 Plus Probiotic) empagliflozin 10 mg tablet 10 mg PO DAILY 10/28/22 04/25/24 (Jardiance) atorvastatin 80 mg tablet 80 mg PO DAILY 11/04/22 04/25/24 clopidogrel 75 mg tablet 75 mg PO DAILY 11/04/22 04/25/24 doxycycline monohydrate 100 mg 100 mg PO BID 11/04/22 04/25/24 capsule metoprolol succinate 50 mg 50 mg PO DAILY 11/04/22 04/25/24 tablet,extended release 24 hr nitroglycerin 0.4 mg sublingual 0.4 mg sublingual ONCE 11/04/22 04/25/24 tablet semaglutide 0.25 mg or 0.5 mg (2 0.5 mg subcut QWEEK 04/25/24 04/25/24 mg/1.5 mL) subcutaneous pen injector (Ozempic) Allergies Allergy/AdvReac Type Severity Reaction Status Date / Time thiopental (From Pentothal) Allergy Severe Paralysis Verified 04/25/24 10:50 Penicillins Allergy Intermediate Skin Rash Verified 04/25/24 10:50 succinylcholine AdvReac Severe Other (See Verified 04/25/24 10:50 Comment) Iodinated Contrast Media AdvReac Other (See Unverified 04/25/24 10:50 Comment) General Stated Complaint: Chest Pain PAVAN: 3 Review of Systems Narrative: see HPPI Exam Const General: cooperative and no acute distress Nutritional Appearance: average body habitus Orientation: alert and oriented x3 Cardio Rate: regular rate Rhythm: regular rhythm GI Inspection: normal to inspection and non-distended Palpation: soft, not firm, no guarding, not rigid and nontender Skin General skin exam: no rashes or lesions noted Neuro General: patient alert, patient oriented x3, gait normal, tone normal, moves all extremities, no focal motor deficits and CN's II-XI intact bilaterally Cranial Nerves: CN's II-XI intact bilaterally, PERRL, EOM intact bilaterally, no nystagmus, facial strength normal and able to elevate shoulders bilaterally Cognition: normal cognition Speech: speech normal Gait: normal gait Motor: muscle tone normal throughout and strength 5/5 throughout Sensory Exam: no sensory deficits noted Coordination: [id number] test normal, Romberg test normal, tandem gait normal and rapid alternating movement UE normal Course Vital Signs Vital signs: Vital Signs Temperature 36.6 C 04/25/24 10:42 Pulse 66 04/25/24 10:42 Respiratory Rate 12 04/25/24 10:42 Blood Pressure 150/90 H 04/25/24 10:42 Temperature 36.6 C 04/25/24 10:42 Pulse 66 04/25/24 10:42 Respiratory Rate 12 04/25/24 10:42 Respiratory Effort Normal 04/25/24 10:59 Blood Pressure 150/90 H 04/25/24 10:42 Pain Level 3 04/25/24 10:42 Lab/Test Results Lab/Test Results: Laboratory Tests Range/Units 04/25/24 10:48 WBC (4.4-10.8) 10^3/uL 5.32 RBC (4.36-5.78) 10^6/uL 4.60 Hgb (13.5-17.5) g/dL 12.6 L Hct (40.0-50.0) % 39.5 L MCV (80-95) fL 86 MCH (27.0-33.0) pg 27.4 MCHC (32.0-36.0) % 31.9 L RDW (11.8-14.1) % 13.5 Plt Count (130-400) 10^3/uL 159 MPV (8.0-11.0) fL 9.2 Immature Gran % % 0.2 Neutrophils % % 62.3 Lymphocytes % % 22.0 Monocytes % % 11.7 Eosinophils % % 3.0 Basophils % % 0.8 Nucleated RBC % (0.0-0.3) % 0.0 Absolute Neutrophils (1.2-6.7) 10^3/uL 3.32 Absolute Lymphocytes (1.2-3.4) 10^3/uL 1.17 L Absolute Monocytes (0.1-0.8) 10^3/uL 0.62 Absolute Eosinophils (0.0-0.7) 10^3/uL 0.16 Absolute Basophils (0.0-0.2) 10^3/uL 0.04 Medical Decision Making Imaging Data Radiologic Study: Radiologist's impression: Exam(s) XR CHEST 2V PA LATERAL EXAM: XR CHEST 2V PA LATERAL CLINICAL HISTORY: CP. TECHNIQUE: 2D digital imaging was performed. COMPARISON: CR XR PORTABLE CHEST AP from 11/04/2022 FINDINGS: 2 views: Coronary artery stent noted Heart size is normal. The mediastinum is not widened. Lungs are clear. No infiltrates nor pleural effusions. Evidence of previous rotator cuff surgery in the right shoulder again noted. IMPRESSION: No acute pulmonary findings. Quality:SDOH Health Related Social Needs: No Data to Display PFSH All Active Problems (Updated 04/25/24 @ 15:21 by Hoda Dunham) Non-ST elevation CT (NSTEMI) (Acute) Chest pain (Acute) Rotator cuff tear arthropathy of left shoulder (Acute) Pseudocholinesterase deficiency (Acute) Pain in right lower leg (Acute) Chronic skin ulcer (Acute) Medical History 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 Bursitis of left shoulder HTN (hypertension) Hx of Lyme disease Rupture of left proximal biceps tendon Stage III chronic kidney disease Tendinitis of long head of biceps brachii of left shoulder Type 2 diabetes mellitus Surgical History Hx of appendectomy Hx of shoulder surgery Social History Smoking/Tobacco Use Status: Never Smoking risk assessment performed?: Yes Alcohol Intake: current Alcohol Intake frequency: a few times a month Alcohol type: beer Substance use type: does not use Housing: apartment Current gender identity: male Do you feel safe at home: Yes Do you feel safe in your relationship?: Yes Additional Social history: 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
[2024-04-25 11:22] LABS: ALT 25 U/L (16-63); AST 17 U/L (15-37); Albumin 4.2 g/dL (3.4-5.0); Alkaline Phosphatase 85 U/L (46-116); BUN 24 mg/dL (7-18); Bilirubin, Total 0.65 mg/dL (0.2-1.0); CREATININE 1.8 mg/dL (0.70-1.30); Calcium 9.7 mg/dL (8.5-10.1); Chloride 106 mmol/L (98-107); Glucose 109 mg/dL (74-106); Magnesium 1.9 mg/dL (1.8-2.4); Potassium 4.4 mmol/L (3.5-5.1); Sodium 141 mmol/L (136-145); Total Protein 7.3 g/dL (6.4-8.2); Troponin I 4 ng/L (<or=76)
--- NOTE | 2024-04-25 11:27 | DI.RAD_ITS ---
Exam(s) XR CHEST 2V PA LATERAL EXAM: XR CHEST 2V PA LATERAL CLINICAL HISTORY: CP. TECHNIQUE: 2D digital imaging was performed. COMPARISON: CR XR PORTABLE CHEST AP from 11/04/2022 FINDINGS: 2 views: Coronary artery stent noted Heart size is normal. The mediastinum is not widened. Lungs are clear. No infiltrates nor pleural effusions. Evidence of previous rotator cuff surgery in the right shoulder again noted. IMPRESSION: No acute pulmonary findings. DATA REPOSITORY: RADIATION DOSE DELIVERED:
[2024-04-25 11:35] LABS: Lab Add On Test DONE
[2024-04-25 11:58] LABS: COVID-19 PCR Negative (Negative); Influenza A PCR Negative (Negative); Influenza B PCR Negative (Negative); RSV PCR Negative (Negative)
[2024-04-25 11:59] LABS: Source Nasopharynx
[2024-04-25 12:00] LABS: NT-proBNP 100 pg/mL (<300)
[2024-04-25 12:17] LABS: Troponin I 5 ng/L (<or=76)
--- NOTE | 2024-04-25 12:45 | RT.EKG_ITS ---
APPROVED REPORT Exam: Resting ECG Reason for Exam: increased chest pain Patient Location: E HR:68 bpm ECG Measurements Heart Rate 68 AXIS ND 197 P 81 QRSd 88 QRS 84 QT 393 T 65 QTc 418 Conclusion Sinus rhythm...normal P axis, V-rate 60- 99 No STEMI
[2024-04-25] MEDS: nitroGLYcerin 0.4 MG TAB ×3 (13:09→13:20)
[2024-04-25] MEDS: Aspirin 81 MG CHEW (13:14)
[2024-04-25 14:09] LABS: Troponin I 4 ng/L (<or=76)
[2024-04-28 16:57] LABS: Anaplasma phagocytophilum Negative (Negative); B. miyamotoi PCR Negative (Negative); Babesia divergens/MO-1 Negative (Negative); Babesia duncani Negative (Negative); Babesia microti Negative (Negative); Ehrlichia chaffeensis Negative (Negative); Ehrlichia ewingii/canis Negative (Negative); Ehrlichia muris eauclairensis Negative (Negative)
== END 2024-04-25 15:33 | disposition home or self-care (01) ==
PROVIDERS: Emergency Provider Nurse Practitioner Family; PCP Physician Assistant
DX: R07.9 Chest pain, unspecified (principal); R51.9 Headache, unspecified; R42 Dizziness and giddiness; E11.22 Type 2 diabetes mellitus with diabetic chronic kidney disease; I12.9 Hypertensive chronic kidney disease with stage 1 through stage 4 chronic kidney disease, or unspecified chronic kidney disease; N18.30 Chronic kidney disease, stage 3 unspecified; I25.2 Old myocardial infarction; Z95.5 Presence of coronary angioplasty implant and graft; Z79.01 Long term (current) use of anticoagulants; Z79.84 Long term (current) use of oral hypoglycemic drugs; Z79.85 Long-term (current) use of injectable non-insulin antidiabetic drugs
CPT/HCPCS: 36415; 80053; 87637; 87798; 93005; 99285; 71046; 83735; 83880; 84484; 85025; 93010; 99284

== ENCOUNTER 2024-05-10 08:14 | Outpatient (CLI) | payer BC, SELFPAY ==
[2024-05-10 14:53] LABS: HCT 39.5 % (40.0-50.0); HGB 12.6 g/dL (13.5-17.5); MCH 27.3 pg (27.0-33.0); MCHC 31.9 % (32.0-36.0); MCV 86 fL (80-95); MPV 8.9 fL (8.0-11.0); Platelet Count 179 10^3/uL (130-400); RBC 4.61 10^6/uL (4.36-5.78); RDW 13.7 % (11.8-14.1); RDW-SD 42.1 fL; WBC 5.07 10^3/uL (4.4-10.8)
[2024-05-10 14:55] LABS: Bilirubin Negative (Negative); Blood Moderate (Negative); Clarity Clear (Clear); Glucose 500 mg/dL (Negative); Ketones Negative (Negative); Leukocyte Esterase Negative (Negative); Nitrite Negative (Negative); Specific Gravity 1.015 (1.005-1.025); Urobilinogen 0.2 mg/dL (Up to 0.2)
[2024-05-10 16:31] LABS: COMMENT (LAB VIEW ONLY) 69.53 mg/dL; Microalb ug/mg Crea 18.6 ug/mg Cr
[2024-05-10 17:36] LABS: Albumin 4.3 g/dL (3.4-5.0); BUN 23 mg/dL (7-18); Calcium 9.4 mg/dL (8.5-10.1); Chloride 105 mmol/L (98-107); Estimated GFR 37.27 (mL/min/1.73m2); PHOSPHORUS 4.3 mg/dL (2.6-4.7); Potassium 4.1 mmol/L (3.5-5.1); Sodium 141 mmol/L (136-145)
[2024-05-10 23:08] LABS: Parathyroid Hormone,Intact 109.9 pg/mL (19.0-88.0)
== END 2024-05-10 08:15 | disposition home or self-care (01) ==
LOC: LBO 08:14
PROVIDERS: PCP Physician Assistant; Visit Provider Internal Medicine
DX: N18.32 Chronic kidney disease, stage 3b (principal); N18.9 Chronic kidney disease, unspecified; E83.9 Disorder of mineral metabolism, unspecified; M89.9 Disorder of bone, unspecified; I10 Essential (primary) hypertension; Z79.899 Other long term (current) drug therapy; R80.9 Proteinuria, unspecified; E08.22 Diabetes mellitus due to underlying condition with diabetic chronic kidney disease; R31.29 Other microscopic hematuria
CPT/HCPCS: 36415; 80051; 84520; 85027; 81003; 82040; 82043; 82310; 82565; 82570; 83970; 84100

== ENCOUNTER 2024-12-01 19:06 | Outpatient (CLI) | payer SELFPAY ==
[2024-12-01 13:25] LABS: HCT 38.8 % (40.0-50.0); HGB 12.6 g/dL (13.5-17.5); MCH 26.5 pg (27.0-33.0); MCHC 32.5 % (32.0-36.0); MCV 82 fL (80-95); MPV 9.1 fL (8.0-11.0); Platelet Count 128 10^3/uL (130-400); RBC 4.75 10^6/uL (4.36-5.78); RDW 15.0 % (11.8-14.1); RDW-SD 45.0 fL; WBC 3.80 10^3/uL (4.4-10.8)
[2024-12-01 13:48] LABS: COMMENT (LAB VIEW ONLY) 102.34 mg/dL; Microalb ug/mg Crea 17.3 ug/mg Cr
[2024-12-01 13:49] LABS: Albumin 4.4 g/dL (3.4-5.0); Anion Gap 8.5 mmol/L (3-11); BUN 17 mg/dL (7-18); CO2 27.5 mmol/L (21.0-32.0); Calcium 9.1 mg/dL (8.5-10.1); Chloride 105 mmol/L (98-107); Estimated GFR 37.04 (mL/min/1.73m2); Potassium 4.2 mmol/L (3.5-5.1); Sodium 141 mmol/L (136-145)
[2024-12-01 13:49] LABS: Glucose 500 mg/dL (Negative)
[2024-12-01 14:27] LABS: Vitamin D 25 Total 48 ng/mL (30-100)
== END 2024-12-01 19:07 | disposition home or self-care (01) ==
LOC: LBO 19:06
PROVIDERS: PCP Physician Assistant; Visit Provider Internal Medicine
DX: N18.32 Chronic kidney disease, stage 3b (principal); N18.9 Chronic kidney disease, unspecified; E83.9 Disorder of mineral metabolism, unspecified; M89.9 Disorder of bone, unspecified; I10 Essential (primary) hypertension
CPT/HCPCS: 36415; 80051; 80069; 82306; 84520; 85027; 81003; 82040; 82043; 82310; 82565; 82570; 83970; 84100

== ENCOUNTER 2024-12-06 17:37 | Outpatient (REF) | payer OTHER, SELFPAY ==
[2024-12-06 20:22] LABS: Glucose >=1000 mg/dL (Negative)
[2024-12-06 20:35] LABS: C & S Indicated? No; WBC 0-2 HPF (0-5)
== END 2024-12-06 17:38 | disposition home or self-care (01) ==
LOC: NCHCN 17:37
PROVIDERS: PCP Physician Assistant; Visit Provider Physician Assistant
DX: R31.9 Hematuria, unspecified (principal)
CPT/HCPCS: 81003; 81015

== ENCOUNTER 2024-12-20 13:16 | Outpatient (REF) | payer OTHER, SELFPAY ==
[2024-12-20 18:05] LABS: Glucose >=1000 mg/dL (Negative)
[2024-12-20 18:17] LABS: C & S Indicated? No; WBC Negative HPF (0-5)
== END 2024-12-20 13:17 | disposition home or self-care (01) ==
LOC: LBN 13:16
PROVIDERS: PCP Physician Assistant; Visit Provider Nurse Practitioner Gerontology
DX: R31.29 Other microscopic hematuria (principal)
CPT/HCPCS: 81003; 81015

== ENCOUNTER 2025-02-06 17:55 | Outpatient (REF) | payer OTHER, SELFPAY ==
[2025-02-06 18:04] LABS: HCT 40.4 % (40.0-50.0); HGB 13.2 g/dL (13.5-17.5); MCH 27.4 pg (27.0-33.0); MCHC 32.7 % (32.0-36.0); MCV 84 fL (80-95); MPV 9.7 fL (8.0-11.0); Platelet Count 154 10^3/uL (130-400); RBC 4.81 10^6/uL (4.36-5.78); RDW 13.9 % (11.8-14.1); RDW-SD 42.6 fL; WBC 5.43 10^3/uL (4.4-10.8)
== END 2025-02-06 17:56 | disposition home or self-care (01) ==
LOC: NCHCN 17:55
PROVIDERS: PCP Physician Assistant; Visit Provider Physician Assistant
DX: D72.819 Decreased white blood cell count, unspecified (principal)
CPT/HCPCS: 85027; 85045